=== PATIENT | male | born 1975 | race Caucasian/White ===

== ENCOUNTER 2016-12-20 10:51 | Emergency (ER) | payer OTHER, BC ==
--- NOTE | 2016-12-20 12:16 | ED ---
Head Injury HPI - General Chief complaint: Head Injury Stated complaint: HEAD LACERATION Time Seen by Provider: 12/20/16 12:02 Source: patient, RN notes reviewed, old records reviewed Mode of arrival: ambulatory Limitations: no limitations - History of Present Illness Initial comments: this is a 41-year-old male presents emergency Department chief complaint of a parietal scalp laceration. Patient reports that he was using a metal pole to drive a fence post in. Patient reports he came upward and hit his head. Denies any loss of consciousness. Denies any nausea or vomiting or vision changes. He states that he felt slightly dizzy for a few seconds afterwards. Patient states that he has been alert and oriented and fine at this time. Patient states that he has a laceration measuring approximately 4 cm over the right frontal/parietal scalp. patient presents that his tetanus shot is up-to- date. Denies any peripheral paresthesias. Patient denies any recent fever, chills, shortness of breath, chest pain, back pain, abdominal pain, nausea vomiting, numbness or tingling, dysuria or hematuria, constipation or diarrhea, headaches or visual changes, or any other current symptoms - Related Data Allergies/Adverse reactions: Allergies Allergy/AdvReac Type Severity Reaction Status Date / Time Penicillins Allergy Unknown Verified 12/20/16 11:56 Childhood Review of Systems ROS Statement: Those systems with pertinent positive or pertinent negative responses have been documented in the HPI. ROS Other: All systems not noted in ROS Statement are negative. Past Medical History Past Medical History: No Reported History History of Any Multi-Drug Resistant Organisms: None Reported Past Surgical History: No Surgical Hx Reported Additional Past Surgical History / Comment(s): lipomas removed Past Psychological History: No Psychological Hx Reported Smoking Status: Never smoker Past Alcohol Use History: Daily Past Drug Use History: None Reported General Exam - General Exam Comments Initial Comments: this is a 41-year-old male. No acute distress. Limitations: no limitations General appearance: alert, in no apparent distress Head exam: Present: atraumatic, normocephalic. Absent: normal inspection (4 cm laceration over the right frontal/parietal scalp. Lacerations are superficial. No significant hematoma noted.) Eye exam: Present: normal appearance, PERRL, EOMI. Absent: scleral icterus, conjunctival injection, periorbital swelling ENT exam: Present: normal exam, mucous membranes moist Neck exam: Present: normal inspection. Absent: tenderness, meningismus, lymphadenopathy Respiratory exam: Present: normal lung sounds bilaterally. Absent: respiratory distress, wheezes, rales, rhonchi, stridor Cardiovascular Exam: Present: regular rate, normal rhythm, normal heart sounds. Absent: systolic murmur, diastolic murmur, rubs, gallop, clicks GI/Abdominal exam: Present: soft, normal bowel sounds. Absent: distended, tenderness, guarding, rebound, rigid Extremities exam: Present: normal inspection Back exam: Present: normal inspection Neurological exam: Present: alert, oriented X3, CN II-XII intact Psychiatric exam: Present: normal affect, normal mood Skin exam: Present: warm, dry, intact, normal color. Absent: rash Course Vital Signs 12/20/16 11:53 Temperature 98.6 F Pulse Rate 75 Respiratory 18 Rate Blood Pressure 135/89 O2 Sat by Pulse 100 Oximetry Procedures - Laceration Laceration #1 Site: scalp (right parietal) Size (cm): 3 Description: linear Depth: simple, single layer Anesthetic Used: lidocaine 1% Anesthesia Technique: local infiltration Amount (mls): 3 Pre-repair: wound explored, irrigated extensively Type of Sutures: other (staple) Number of Sutures: 4 Patient Tolerated Procedure: well, no complications Medical Decision Making - Medical Decision Making 41-year-old male chief complaint of a scalp laceration while using a metal pole trimethaphan spurs. He reports he came up with a metal pole and hit his head. Patient denies any loss of consciousness. Denies any vision changes, nausea or any prolonged headache or symptoms. Patient reports he felt slightly dizzy for a few seconds after he hit himself. Patient states that he is up-to-date on tetanus shot. Patient's wound was thoroughly irrigated and closed with 4 demarco. Is continued to have the demarco removed. Patient underwent CT scan brain and Cspine. Discussed strict return parameters, if he has any severe vomiting or altered mental status he needs return to emergency department at once. Patient is with his significant other. She understands return parameters as well. Discussed the patient needs to be monitored for the next 24 -48 hours. Patient agrees to treatment plan will comply. Discussed monitoring for any signs of infection over the demarco. Return parameters were discussed. - Radiology Data Radiology results: report reviewed Normal computed tomography scan of the brain. CT of the C-spine is negative for any acute process. Disposition Clinical Impression: Scalp laceration, Head injury, closed, without LOC Disposition: HOME SELF-CARE Condition: Good Instructions: Concussion (ED), Staple Care (ED) Additional Instructions: Please return to the emergency room in 8-10 days to have demarco removed. Please leave wound covered for the first 24-48 hours and then leave open to air after that time. Please use clean soap and water to clean the staple area to prevent scabbing over the top of your sutures. Please watch for any signs of infection which may include but not limited to increased pain, swelling, redness , fever or chills. Please return to the emergency room if any signs of infection do occur. Please return to the emergency room for any other concerns or complications. Referrals: Ambrocio Morales MD [Primary Care Provider] - 1-2 days Time of Disposition: 12:14
--- NOTE | 2016-12-20 13:33 | CT ---
EXAMINATION TYPE: CT brain myah guadalupe DATE OF EXAM: 12/20/2016 COMPARISON: NONE HISTORY: Laceration to top of head after 25 lb fence fell on head CT DLP: 1790 mGycm Automated exposure control for dose reduction was used. TECHNIQUE: CT scan of the head and cervical spine are performed without contrast. FINDINGS: BRAIN: Central structures are midline. There is no evidence of hydrocephalus. No acute focal lesion, mass effect or midline shift is seen. I do not see evidence of intracranial blood. Visualized portions of the paranasal sinuses and mastoids are clear. No depressed skull fracture is s een. IMPRESSION: NORMAL CT SCAN OF THE BRAIN. CERVICAL SPINE: Visualized portions of the lungs are clear. There is some shotty cervical adenopathy. Prevertebral soft tissues are otherwise normal. Vertebral body height and alignment are maintained. Atlantoaxial relationships are normal. There is n o significant degenerative change. There are no protrusions identified. No fractures are identified. IMPRESSION: NO ACUTE OSSEOUS LESION.
[2016-12-20 13:42] VITALS: BP 131/66; PULSE 80; RESP 20; TEMP 98.2
== END 2016-12-20 13:42 | disposition home or self-care (01) ==
LOC: EC 10:51
DX: S01.01XA Laceration without foreign body of scalp, initial encounter (principal); Z88.0 Allergy status to penicillin; W22.8XXA Striking against or struck by other objects, initial encounter; Y93.89 Activity, other specified
CPT/HCPCS: 12002; 70450; 72125; 99284

== ENCOUNTER 2018-10-13 21:24 | Emergency (ER) | payer BC, OTHER ==
[2018-10-13 21:31] VITALS: TEMP 98.1
[2018-10-13] MEDS ORDERED: SODIUM CHLORIDE 0.9% 500 ML 500 ML IV STA (21:45)
[2018-10-13 22:21] LABS: Basophils % (A) 1 %; Eosinophils # (A) 0.1 k/uL (0-0.7); Eosinophils % (A) 1 %; HCT 42.6 % (39.0-53.0); HGB 14.2 gm/dL (13.0-17.5); Lymphocytes # (A) 2.3 k/uL (1.0-4.8); Lymphocytes % (A) 29 %; MCH 29.8 pg (25.0-35.0); MCHC 33.2 g/dL (31.0-37.0); MCV 89.7 fL (80.0-100.0); Mean Platelet Volume 7.2; Monocytes # (A) 0.4 k/uL (0-1.0); Monocytes % (A) 5 %; Neutrophils # (A) 5.1 k/uL (1.3-7.7); Neutrophils % (A) 63 %; Platelet Count 205 k/uL (150-450); RBC 4.75 m/uL (4.30-5.90); RDW 14.5 % (11.5-15.5)
[2018-10-13 22:29] LABS: ALT 42 U/L (21-72); AST 32 U/L (17-59); African American GFR (CKD) >90 (>60 ml/min/1.73 sqM); Albumin 4.4 g/dL (3.5-5.0); Alkaline Phosphatase 85 U/L (38-126); Amylase 40 U/L (30-110); Anion Gap 10 mmol/L; Blood Urea Nitrogen 18 mg/dL (9-20); Calcium 8.9 mg/dL (8.4-10.2); Carbon Dioxide 26 mmol/L (22-30); Chloride 104 mmol/L (98-107); Glucose 106 mg/dL (74-99); Magnesium 2.1 mg/dL (1.6-2.3); Potassium 3.7 mmol/L (3.5-5.1); Sodium 140 mmol/L (137-145); Total Bilirubin 0.5 mg/dL (0.2-1.3); Total Protein 7.1 g/dL (6.3-8.2)
[2018-10-13 22:34] LABS: D-Dimer 0.56 mg/L FEU (<0.60); Partial Thromboplastin Time 23.6 sec (22.0-30.0); Prothrombin Time 10.5 sec (9.0-12.0)
--- NOTE | 2018-10-13 22:51 | XR ---
EXAM: XR Chest, 2 Views CLINICAL HISTORY: Chest Pain TECHNIQUE: Frontal and lateral views of the chest. COMPARISON: 06/19/2018 FINDINGS: Lungs: Unremarkable. No consolidation. Pleural space: Unremarkable. No pneumothorax. Heart: Unremarkable. No cardiomegaly. Mediastinum: Unremarkable. Bones/joints: No acute osseous abnormality. IMPRESSION: No acute cardiopulmonary process.
[2018-10-13] MEDS ORDERED: ONDANSETRON 4 MG/2 ML VIAL IVP STA (22:53)
[2018-10-13] MEDS ORDERED: SODIUM CHLORIDE 0.9% 1,000 ML IV ONE (22:53)
[2018-10-13] MEDS ORDERED: MORPHINE SULFATE 4 MG/ML SYRINGE IVP STA (22:53)
[2018-10-14] MEDS ORDERED: HYDROmorphone 1 MG/ML 1 ML SYRINGE IVP STA (01:44)
--- NOTE | 2018-10-14 01:55 | US ---
EXAM: US Abdomen Limited, Right Upper Quadrant CLINICAL HISTORY: Pain TECHNIQUE: Real-time ultrasound of the right upper quadrant with image documentation. COMPARISON: No relevant prior studies available. FINDINGS: Liver: Liver is normal in size and smooth in contour. Diffusely increased hepatic echogenicity is suggestive of steatosis. No focal hepatic lesions. Gallbladder: Unremarkable. No gallstones. Common bile duct: Unremarkable as visualized. No stones. No dilation. Pancreas: Unremarkable as visualized. Right kidney: Unremarkable. No stones. No solid mass. No hydronephrosis. IMPRESSION: No acute findings. Probable hepatic steatosis.
--- NOTE | 2018-10-14 02:03 | ED ---
General Adult HPI - General Source: patient Mode of arrival: ambulatory Limitations: no limitations <Whitney Cardoza - Last Filed: 10/14/18 02:14> <Sadie Horvath - Last Filed: 10/14/18 13:16> - General Chief complaint: Chest Pain Stated complaint: Chest pain Time Seen by Provider: 10/13/18 21:36 - History of Present Illness Initial comments: 43-year-old male patient presents to the emergency department today for evaluation of chest discomfort radiating into his neck. Patient states symptoms started approximately 45 minutes prior to arrival. Patient states he may be having some shortness of breath with this. Denies any cough or congestion. Patient denies taking any medication for his symptoms. He reports that he did have surgery to remove pins out of his right foot yesterday. States he was in tubated. He denies any fever or chills with this. Denies any abdominal pain, nausea, or vomiting. Patient denies any history of smoking. Does report that he drinks alcohol every other day. Denies any constipation or diarrhea. Denies any history of similar symptoms. Does report that he has a dysfunctional gallbladder and has been having "attacks" for the last 10 years. Patient denies any recent rash, diarrhea, constipation, back pain, numbness, tingling, dizziness, weakness, hematuria, dysuria, urinary urgency, urinary frequency, headache, visual changes, or any other complaints. (Whitney Cardoza) - Related Data Home Medications Medication Instructions Recorded Confirmed Aspirin EC [Ecotrin] 325 mg PO DAILY 06/19/18 10/13/18 Allergies Allergy/AdvReac Type Severity Reaction Status Date / Time Penicillins Allergy Unknown Verified 10/13/18 22:10 Childhood Review of Systems ROS Other: All systems not noted in ROS Statement are negative. <Whitney Cardoza - Last Filed: 10/14/18 02:14> ROS Other: All systems not noted in ROS Statement are negative. <Sadie Horvath - Last Filed: 10/14/18 13:16> ROS Statement: Those systems with pertinent positive or pertinent negative responses have been documented in the HPI. Past Medical History Past Medical History: Deep Vein Thrombosis (DVT) History of Any Multi-Drug Resistant Organisms: None Reported Past Surgical History: Orthopedic Surgery Additional Past Surgical History / Comment(s): lipomas removed Past Psychological History: No Psychological Hx Reported Smoking Status: Never smoker Past Alcohol Use History: Daily Past Drug Use History: None Reported <Whitney Cardoza Manny - Last Filed: 10/14/18 02:14> General Exam Limitations: no limitations General appearance: alert, in no apparent distress, other (Physical well- developed, well-nourished adult male patient in no acute distress. Vital signs upon presentation are temperature 98.1F, pulse 89, respirations 18, blood pressure 148/96, pulse ox 98% on room air.) Eye exam: Present: normal appearance, PERRL, EOMI. Absent: scleral icterus, conjunctival injection, periorbital swelling ENT exam: Present: normal exam, normal oropharynx, mucous membranes moist Respiratory exam: Present: normal lung sounds bilaterally. Absent: respiratory distress, wheezes, rales, rhonchi, stridor Cardiovascular Exam: Present: regular rate, normal rhythm, normal heart sounds. Absent: systolic murmur, diastolic murmur, rubs, gallop, clicks GI/Abdominal exam: Present: soft, normal bowel sounds. Absent: distended, tenderness, guarding, rebound, rigid Neurological exam: Present: alert, oriented X3, CN II-XII intact Psychiatric exam: Present: normal affect, normal mood Skin exam: Present: warm, dry, intact, normal color. Absent: rash <Whitney Cardoza Manny - Last Filed: 10/14/18 02:14> Course Vital Signs 10/13/18 10/14/18 21:28 02:12 Temperature 98.1 F Pulse Rate 89 78 Respiratory 18 16 Rate Blood Pressure 148/96 117/62 O2 Sat by Pulse 98 100 Oximetry EKG Findings - EKG Comments: EKG Findings:: EKG obtained at 2136 shows normal sinus rhythm with a ventricular rate of 76, MI interval 186, QRS duration 96, QT 378, QTC 425. No evidence of ST elevation or depression. <Whitney Cardoza - Last Filed: 10/14/18 02:14> Medical Decision Making - Lab Data Result diagrams: 10/13/18 22:11 10/13/18 22:11 - Radiology Data Radiology results: report reviewed, image reviewed <Whitney Cardoza - Last Filed: 10/14/18 02:14> - Lab Data Result diagrams: 10/13/18 22:11 10/13/18 22:11 <Sadie Horvath - Last Filed: 10/14/18 13:16> - Medical Decision Making 43-year-old male patient presented to the emergency department today for evaluation of chest pain with radiation into the throat. Physical examination was unremarkable. Abdomen soft and nontender. Lungs are clear to auscultation with good air movement. Patient did have surgical procedure yesterday. Does have history of DVT. Labs reviewed, Troponin negative. Lipase did show elevation of 484. D-dimer was negative. Chest x-ray showed no acute cardiopulmonary process. I did discuss findings and results with the patient. Given history of gallbladder dysfunction elevated lipase at did perform abdominal ultrasound which showed no acute abnormalities of the gallbladder. We did discuss pancreatic irritation as a cause for his symptoms. We also discussed irritation from being intubated during his procedure yesterday as a possible cause. He is instructed to increase fluids. He is instructed to follow-up with his primary care physician for recheck in 1-2 days. He is urged to discuss cardiology referral. Return parameters were discussed in detail. He verbalizes understanding and agrees with this plan. (Whitney Cardoza) I was available for consultation in the emergency department. The history and physical exam were done by the midlevel provider. I was consulted for this patient's care. I reviewed the case with the midlevel provider and based on their presentation of the patient, I agree with the assessment, medical decision making and plan of care as documented. Chart was dictated using [employer] dictation software. Attempts were made to correct any dictation errors however some typographical errors may persist. (Sadie Horvath) - Lab Data Lab Results 10/13/18 10/13/18 10/13/18 Range/Units 22:11 22:11 22:11 WBC 8.0 (3.8-10.6) k/uL RBC 4.75 (4.30-5.90) m/uL Hgb 14.2 (13.0-17.5) gm/dL Hct 42.6 (39.0-53.0) % MCV 89.7 (80.0-100.0) fL MCH 29.8 (25.0-35.0) pg MCHC 33.2 (31.0-37.0) g/dL RDW 14.5 (11.5-15.5) % Plt Count 205 (150-450) k/uL Neutrophils % 63 % Lymphocytes % 29 % Monocytes % 5 % Eosinophils % 1 % Basophils % 1 % Neutrophils # 5.1 (1.3-7.7) k/uL Lymphocytes # 2.3 (1.0-4.8) k/uL Monocytes # 0.4 (0-1.0) k/uL Eosinophils # 0.1 (0-0.7) k/uL Basophils # 0.0 (0-0.2) k/uL PT 10.5 (9.0-12.0) sec INR 1.0 (<1.2) APTT 23.6 (22.0-30.0) sec D-Dimer 0.56 (<0.60) mg/L FEU Sodium 140 (137-145) mmol/L Potassium 3.7 (3.5-5.1) mmol/L Chloride 104 (98-107) mmol/L Carbon Dioxide 26 (22-30) mmol/L Anion Gap 10 mmol/L BUN 18 (9-20) mg/dL Creatinine 1.04 (0.66-1.25) mg/dL Est GFR (CKD-EPI)AfAm >90 (>60 ml/min/1.73 sqM) Est GFR (CKD-EPI)NonAf 88 (>60 ml/min/1.73 sqM) Glucose 106 H (74-99) mg/dL Calcium 8.9 (8.4-10.2) mg/dL Magnesium 2.1 (1.6-2.3) mg/dL Total Bilirubin 0.5 (0.2-1.3) mg/dL AST 32 (17-59) U/L ALT 42 (21-72) U/L Alkaline Phosphatase 85 (38-126) U/L Troponin I (0.000-0.034) ng/mL Total Protein 7.1 (6.3-8.2) g/dL Albumin 4.4 (3.5-5.0) g/dL Amylase 40 (30-110) U/L Lipase 484 H (23-300) U/L 10/13/18 Range/Units 22:11 WBC (3.8-10.6) k/uL RBC (4.30-5.90) m/uL Hgb (13.0-17.5) gm/dL Hct (39.0-53.0) % MCV (80.0-100.0) fL MCH (25.0-35.0) pg MCHC (31.0-37.0) g/dL RDW (11.5-15.5) % Plt Count (150-450) k/uL Neutrophils % % Lymphocytes % % Monocytes % % Eosinophils % % Basophils % % Neutrophils # (1.3-7.7) k/uL Lymphocytes # (1.0-4.8) k/uL Monocytes # (0-1.0) k/uL Eosinophils # (0-0.7) k/uL Basophils # (0-0.2) k/uL PT (9.0-12.0) sec INR (<1.2) APTT (22.0-30.0) sec D-Dimer (<0.60) mg/L FEU Sodium (137-145) mmol/L Potassium (3.5-5.1) mmol/L Chloride (98-107) mmol/L Carbon Dioxide (22-30) mmol/L Anion Gap mmol/L BUN (9-20) mg/dL Creatinine (0.66-1.25) mg/dL Est GFR (CKD-EPI)AfAm (>60 ml/min/1.73 sqM) Est GFR (CKD-EPI)NonAf (>60 ml/min/1.73 sqM) Glucose (74-99) mg/dL Calcium (8.4-10.2) mg/dL Magnesium (1.6-2.3) mg/dL Total Bilirubin (0.2-1.3) mg/dL AST (17-59) U/L ALT (21-72) U/L Alkaline Phosphatase (38-126) U/L Troponin I <0.012 (0.000-0.034) ng/mL Total Protein (6.3-8.2) g/dL Albumin (3.5-5.0) g/dL Amylase (30-110) U/L Lipase (23-300) U/L - Radiology Data Two-view x-ray of the chest is obtained. Report reviewed in its entirety. Im pression by Dr. Furubayashi shows no acute cardiopulmonary process. Ultrasound of the right upper quadrant abdomen was obtained. Report was reviewed in its entirety. Impression by Dr. Fischer shows no acute findings. Probable hepatic steatosis. (Whitney Cardoza) Disposition Is patient prescribed a controlled substance at d/c from ED?: No Time of Disposition: 02:02 <Whitney Cardoza - Last Filed: 10/14/18 02:14> <Sadie Horvath - Last Filed: 10/14/18 13:16> Clinical Impression: Chest pain Disposition: HOME SELF-CARE Condition: Good Instructions (If sedation given, give patient instructions): Chest Pain (ED), Pancreatitis (ED) Additional Instructions: Increase fluids. Start with clear liquid diet and advance as tolerated. Avoid fatty or greasy foods. Follow-up through primary care physician for recheck in 1-2 days. Discuss referral to cardiology. Return to the emergency department immediately for any new, worsening, or concerning symptoms. Referrals: Ambrocio Morales MD [Primary Care Provider] - 1-2 days
[2018-10-14 02:13] VITALS: BP 117/62; PULSE 78; RESP 16
== END 2018-10-14 02:12 | disposition home or self-care (01) ==
LOC: EC 21:24
DX: R07.89 Other chest pain (principal); Z86.718 Personal history of other venous thrombosis and embolism; Z79.82 Long term (current) use of aspirin; Z88.0 Allergy status to penicillin
CPT/HCPCS: 36415; 93005; 85379; 80053; 82150; 83690; 83735; 84484; 85025; 85610; 85730; 71046; 99285; 96374; 96375; 96361; J2270; J2405; 76705

== ENCOUNTER 2020-08-05 21:09 | Observation (INO) | payer BC, OTHER ==
[~2020-08-05 21:09] MED LIST: IV FLUID CONTINUATION 1,000 ML IV ONE
[2020-08-05] MEDS ORDERED: ASPIRIN 81 MG PO STA (21:32)
[2020-08-05] MEDS ORDERED: NITROGLYCERIN SL TABS 0.4 MG TAB SUBLINGUAL STA (21:32)
--- NOTE | 2020-08-05 21:32 | ED ---
Chest Pain HPI - General Chief Complaint: Chest Pain Stated Complaint: Chest pain Time Seen by Provider: 08/05/20 21:15 Source: patient Mode of arrival: wheelchair Limitations: no limitations - History of Present Illness MD Complaint: chest pain Onset/Timin -: minutes(s) Onset: during exertion (Patient was raking) Pain Location: substernal, right chest Pain Radiation: none Severity: moderate Quality: sharp Consistency: intermittent Improves With: other (Pressing on his chest) Worsens With: nothing Treatments Prior to Arrival: none - Related Data Home Medications Medication Instructions Recorded Confirmed Aspirin EC [Ecotrin] 325 mg PO DAILY 06/19/18 08/05/20 EPINEPHrine (Auto Inject) [Epipen] 0.3 mg IM ONCE PRN 08/05/20 08/05/20 Fluticasone Nasal Wilbur [Flonase 2 spr EA NOSTRIL DAILY PRN 08/05/20 08/05/20 Nasal Wilbur] Ibuprofen [Motrin] 800 mg PO BID PRN 08/05/20 08/05/20 Meloxicam 15 mg PO DAILY 08/05/20 08/05/20 Pantoprazole Sodium [Protonix] 40 mg PO DAILY 08/05/20 08/05/20 Allergies Allergy/AdvReac Type Severity Reaction Status Date / Time Penicillins Allergy Unknown Verified 08/05/20 21:53 Childhood Review of Systems ROS Statement: Those systems with pertinent positive or pertinent negative responses have been documented in the HPI. ROS Other: All systems not noted in ROS Statement are negative. Constitutional: Denies: fever, chills Respiratory: Denies: cough, dyspnea Cardiovascular: Reports: chest pain. Denies: palpitations, dyspnea on exertion, edema, syncope Gastrointestinal: Denies: abdominal pain, nausea, vomiting Genitourinary: Denies: dysuria, hematuria Musculoskeletal: Denies: back pain Skin: Denies: rash Neurological: Denies: headache, weakness, numbness EKG Findings - EKG Results: EKG: interpreted by BREE, sinus rhythm (Rate 100 bpm), normal axis, normal QRS, no acute changes - Blocks, [place], Hypertrophy, ST Abn: Repolarization changes or abnormalities: nonspecific abnormality, ST segment, and/or T wave Past Medical History Past Medical History: Deep Vein Thrombosis (DVT) History of Any Multi-Drug Resistant Organisms: None Reported Past Surgical History: Orthopedic Surgery Additional Past Surgical History / Comment(s): lipomas removed Past Psychological History: No Psychological Hx Reported Smoking Status: Never smoker Past Alcohol Use History: Daily Past Drug Use History: None Reported - Past Family History Mother Family Medical History: Cancer Father Family Medical History: Cancer General Exam Limitations: no limitations General appearance: alert, in no apparent distress Head exam: Present: atraumatic, normocephalic Eye exam: Present: normal appearance. Absent: scleral icterus, conjunctival injection Neck exam: Present: normal inspection Respiratory exam: Present: normal lung sounds bilaterally. Absent: respiratory distress, wheezes, rales, rhonchi, stridor, chest wall tenderness, accessory muscle use, decreased breath sounds, prolonged expiratory Cardiovascular Exam: Present: regular rate, normal rhythm, normal heart sounds. Absent: systolic murmur, diastolic murmur, rubs, gallop GI/Abdominal exam: Present: soft. Absent: distended, tenderness, guarding, rebound, rigid, mass Extremities exam: Present: normal inspection, normal capillary refill. Absent: pedal edema, calf tenderness Back exam: Present: normal inspection. Absent: CVA tenderness (R), CVA tenderness (L) Neurological exam: Present: alert Skin exam: Present: warm, dry, intact, normal color. Absent: rash Course Vital Signs 08/05/20 08/05/20 08/05/20 21:11 21:28 21:54 Temperature 98.0 F Pulse Rate 100 96 Pulse Rate [ 96 Testing Director ] Respiratory 18 18 Rate Blood Pressure 146/85 129/100 O2 Sat by Pulse 98 98 Oximetry 08/05/20 08/05/20 08/05/20 22:29 22:57 23:00 Temperature Pulse Rate 92 97 90 Pulse Rate [ Testing Director ] Respiratory 18 18 18 Rate Blood Pressure 133/102 145/100 138/102 O2 Sat by Pulse 96 98 97 Oximetry 08/05/20 08/05/20 08/06/20 23:20 23:40 00:20 Temperature 98.5 F Pulse Rate 81 78 Pulse Rate [ Testing Director ] Respiratory 18 18 Rate Blood Pressure 121/94 122/83 O2 Sat by Pulse 97 97 Oximetry - Reevaluation(s) Reevaluation #1: 08/05/20 23:04 I was informed that the patient had slightly elevated troponin. Patient reevaluated. ECG repeated which does not show STEMI. Case discussed with Dr. Juarez, covering cardiology and his recommendations are incorporated. Patient reevaluated following some medications and he states that the pain has gone however he does still have a mild tightness in the chest. Additional medications ordered. Reevaluation #2: 08/05/20 23:21 Patient has continued to have chest pains despite increased medical management, case has been discussed with Dr. Juarez who has activated the Stud Driver and will take patient for heart cath. Critical Care Time Critical Care Time: Yes (40 minutes) Disposition Clinical Impression: Acute coronary syndrome, Elevated troponin I level Disposition: ADMITTED IP TO THIS HOSP Condition: Critical
[2020-08-05 21:42] LABS: Basophils % (A) 1 %; Eosinophils # (A) 0.2 k/uL (0-0.7); Eosinophils % (A) 3 %; HCT 38.8 % (39.0-53.0); HGB 13.6 gm/dL (13.0-17.5); Lymphocytes # (A) 2.2 k/uL (1.0-4.8); Lymphocytes % (A) 36 %; MCH 31.1 pg (25.0-35.0); MCHC 34.9 g/dL (31.0-37.0); Mean Platelet Volume 7.3; Monocytes # (A) 0.4 k/uL (0-1.0); Monocytes % (A) 6 %; Neutrophils # (A) 3.1 k/uL (1.3-7.7); Neutrophils % (A) 51 %; Platelet Count 185 k/uL (150-450); RBC 4.36 m/uL (4.30-5.90); WBC 6.1 k/uL (3.8-10.6)
--- NOTE | 2020-08-05 21:51 | XR ---
EXAMINATION TYPE: XR chest 2V DATE OF EXAM: 08/05/2020 COMPARISON: Chest x-ray 10/13/2018 HISTORY: Chest pain TECHNIQUE: Frontal and lateral views of the chest are obtained. FINDINGS: There is no focal air space opacity, pleural effusion, or pneumothorax seen. The cardiac silhouette size is within normal limits. The osseous structures are intact. There are overlying mahad ds. IMPRESSION: No acute cardiopulmonary process.
[2020-08-05 21:54] LABS: ALT 26 U/L (4-49); AST 39 U/L (17-59); African American GFR (CKD) >90 (>60 ml/min/1.73 sqM); Alkaline Phosphatase 69 U/L (38-126); Amylase 42 U/L (30-110); Anion Gap 7 mmol/L; Blood Urea Nitrogen 18 mg/dL (9-20); Calcium 8.8 mg/dL (8.4-10.2); Carbon Dioxide 23 mmol/L (22-30); Chloride 110 mmol/L (98-107); Glucose 95 mg/dL (74-99); Lipase 50 U/L (23-300); Magnesium 1.9 mg/dL (1.6-2.3); Non-African American GFR(CKD) >90 (>60 ml/min/1.73 sqM); Potassium 3.3 mmol/L (3.5-5.1); Sodium 140 mmol/L (137-145); Total Bilirubin 0.6 mg/dL (0.2-1.3); Total Protein 6.5 g/dL (6.3-8.2)
[2020-08-05] MEDS ORDERED: MORPHINE SULFATE 4 MG/ML SYRINGE IV STA (21:56)
[2020-08-05 22:18] LABS: INR 0.9 (<1.2); Partial Thromboplastin Time 23.3 sec (22.0-30.0); Prothrombin Time 9.9 sec (9.0-12.0)
[2020-08-05] MEDS ORDERED: HEPARIN SODIUM 1,000 UN/ML (10ML VL) IV PRN (22:35)
[2020-08-05] MEDS ORDERED: fentaNYL (PF) 50 MCG/ML 2 ML AMP IVP STA ×2 (22:37→22:56)
[2020-08-05] MEDS ORDERED: METOPROLOL TARTRATE 5 MG/5 ML VIAL IVP SCH (22:45)
[2020-08-05] MEDS ORDERED: HEPARIN SOD,PORK IN 0.45% NACL 25,000 UNIT in 0.45% NACL 1 250ML.BAG IV SCH (22:45)
[2020-08-05] MEDS ORDERED: METOPROLOL TARTRATE 5 MG/5 ML VIAL IVP PRN (22:46)
[2020-08-05] MEDS ORDERED: METOPROLOL TARTRATE 5 MG/5 ML VIAL IVP STA ×2 (22:46→23:03)
[2020-08-05] MEDS ORDERED: NITROGLYCERIN-D5W PMX 50 MG in DEXTROSE/WATER 1 250ML.BAG IV ONE (22:46)
[2020-08-05] MEDS ORDERED: LIDOCAINE 1% INJ 10MG/ML (20 ML MDV) ONE (23:52)
[2020-08-06] MEDS ORDERED: VERAPAMIL 2.5 MG/ML 2 ML AMP ONE (00:11)
[2020-08-06] MEDS ORDERED: LIDOCAINE 1% INJ 10MG/ML (20 ML MDV) SQ ONE ×2 (00:17)
[2020-08-06] MEDS ORDERED: VERAPAMIL SYRINGE (5 MG/10 ML) INTRAARTER ONE (00:20)
[2020-08-06] MEDS ORDERED: MIDAZOLAM 2 MG/2 ML VIAL IV ONE (00:22)
[2020-08-06] MEDS ORDERED: HYDROmorphone 1 MG/ML 1 ML SYRINGE ONE (00:26)
[2020-08-06] MEDS ORDERED: HYDROmorphone 1 MG/ML 1 ML SYRINGE IVP ONE (00:29)
[2020-08-06] MEDS ORDERED: RX INFO: IV CONTRAST WAS GIVEN 1 EACH MISC MISCELLANE PRN (00:40)
[2020-08-06] MEDS ORDERED: POTASSIUM CHLORIDE ER 20 MEQ TAB.ER PO STA (00:43)
[2020-08-06] MEDS ORDERED: SODIUM CHLORIDE 0.9% 1,000 ML IV SCH (00:45)
[2020-08-06] MEDS ORDERED: IV FLUID CONTINUATION 1,000 ML IV ONE (00:45)
--- NOTE | 2020-08-06 00:49 | P.CRDCN ---
History of Present Illness Consult date: 08/06/20 Chief complaint: Chest pain History of present illness: This is a 45-year-old gentleman with a past medical history significant for hypertension presented to the emergency department complaining of chest discomfort. The chest discomfort started earlier. The patient discomfort as a pressure/dull discomfort in the middle of the chest with radiation to the neck. It was not associated with any shortness of breath or dizziness or lightheadedne ss or sweating or nausea or vomiting or change in mental status. The patient continues to have ongoing chest discomfort in the ER did not improve in spite of IV nitroglycerin. The EKG showed sinus rhythm without any significant ST or T- wave abnormalities. The troponin came in to be abnormal. Because of the ongoing chest discomfort and because of the abnormal troponin a heart catheterization was advised. He underwent a heart catheterization which revealed normal coronaries. Upon injecting the right coronary artery the patient went into V. fib because of injection through the conus branch of the RCA. He was cardioverted. Since then he has been maintaining normal rhythm and is stable from a cardiovascular standpoint of view. The heparin will be stopped. He will be started on aspirin as well as Toprol-XL. Please note that his potassium was borderline low at 3.2. Magnesium is within normal limits. Will replace her potassium and continue monitor the potassium for the next 24 hours. Also we are going to obtain an echocardiogram was Doppler. Past Medical History Past Medical History: Deep Vein Thrombosis (DVT) History of Any Multi-Drug Resistant Organisms: None Reported Past Surgical History: Orthopedic Surgery Additional Past Surgical History / Comment(s): lipomas removed Past Psychological History: No Psychological Hx Reported Smoking Status: Never smoker Past Alcohol Use History: Daily Past Drug Use History: None Reported Medications and Allergies Home Medications Medication Instructions Recorded Confirmed Type Aspirin EC [Ecotrin] 325 mg PO DAILY 06/19/18 08/05/20 History EPINEPHrine (Auto Inject) [Epipen] 0.3 mg IM ONCE PRN 08/05/20 08/05/20 History Fluticasone Nasal [place] [Flonase 2 spr EA NOSTRIL DAILY PRN 08/05/20 08/05/20 History Nasal [place]] Ibuprofen [Motrin] 800 mg PO BID PRN 08/05/20 08/05/20 History Meloxicam 15 mg PO DAILY 08/05/20 08/05/20 History Pantoprazole Sodium [Protonix] 40 mg PO DAILY 08/05/20 08/05/20 History Allergies Allergy/AdvReac Type Severity Reaction Status Date / Time Penicillins Allergy Unknown Verified 08/05/20 21:53 Childhood Physical Exam Vitals: Vital Signs Temp Pulse Pulse Resp BP Pulse Ox 08/05/20 23:40 78 18 122/83 97 08/05/20 23:20 81 18 121/94 97 08/05/20 23:00 90 18 138/102 97 08/05/20 22:57 97 18 145/100 98 08/05/20 22:29 92 18 133/102 96 08/05/20 21:54 96 18 129/100 98 08/05/20 21:28 96 08/05/20 21:11 98.0 F 100 18 146/85 98 Intake and Output 08/05/20 08/05/20 08/06/20 14:59 22:59 06:59 Other: Weight 74.843 kg - Constitutional General appearance: no acute distress - Respiratory Respiratory: bilateral: CTA - Cardiovascular Rhythm: regular Heart sounds: normal: S1, S2 Abnormal Heart Sounds: systolic murmur Results 08/05/20 21:34 08/05/20 21:34 Cardiac Enzymes 08/05/20 08/05/20 Range/Units 21:34 21:34 AST 39 (17-59) U/L Troponin I 0.286 H* (0.000-0.034) ng/mL Coagulation 08/05/20 Range/Units 21:34 PT 9.9 (9.0-12.0) sec APTT 23.3 (22.0-30.0) sec CBC 08/05/20 Range/Units 21:34 WBC 6.1 (3.8-10.6) k/uL RBC 4.36 (4.30-5.90) m/uL Hgb 13.6 (13.0-17.5) gm/dL Hct 38.8 L (39.0-53.0) % Plt Count 185 (150-450) k/uL Comprehensive Metabolic Panel 08/05/20 Range/Units 21:34 Sodium 140 (137-145) mmol/L Potassium 3.3 L (3.5-5.1) mmol/L Chloride 110 H (98-107) mmol/L Carbon Dioxide 23 (22-30) mmol/L BUN 18 (9-20) mg/dL Creatinine 0.95 (0.66-1.25) mg/dL Glucose 95 (74-99) mg/dL Calcium 8.8 (8.4-10.2) mg/dL AST 39 (17-59) U/L ALT 26 (4-49) U/L Alkaline Phosphatase 69 (38-126) U/L Total Protein 6.5 (6.3-8.2) g/dL Albumin 4.0 (3.5-5.0) g/dL Current Medications Generic Name Dose Route Start Last Admin Trade Name Freq PRN Reason Stop Dose Admin Aspirin 81 mg 08/06/20 09:00 Aspirin 81 Mg PO DAILY AB Nitroglycerin/Dextrose 50 mg/ 250 mls @ 6 mls/hr 08/05/20 22:46 08/05/20 22:49 IV Solution IV 08/06/20 22:45 20 mcg/min .Q24H ONE 6 mls/hr Administration Protocol 20 MCG/MIN Sodium Chloride 1,000 mls @ 75 mls/hr 08/06/20 00:45 Saline 0.9% IV 08/06/20 05:46 .[id number] AB Metoprolol Succinate 25 mg 08/06/20 09:00 Metoprolol Succinate (Er) 25 Mg Tab.Er.24h PO DAILY [facility] Miscellaneous Information 1 each 08/06/20 00:40 Rx Info: Iv Contrast Was Given 1 Each Misc MISCELLANE 08/08/20 00:41 DAILY PRN Per Protocol Intake and Output 08/05/20 08/05/20 08/06/20 14:59 22:59 06:59 Other: Weight 74.843 kg Patient Weight 08/06/20 06:59 Weight 74.843 kg 08/05/20 21:34 08/05/20 21:34 Assessment and Plan Assessment: Assessment #1 chest discomfort #2 mildly abnormal troponin #3 iatrogenic ventricular fibrillation #4 electrolytes imbalance with hypokalemia Plan #1 aspirin #2 Toprol-XL #3 replace the potassium #4 obtain an echo was Doppler #5 follow-up with the patient
[2020-08-06] MEDS ORDERED: IOPAMIDOL-370 100ML BTL INJ ONE (00:52)
[2020-08-06 01:04] LABS: Glucose,Whole Blood 109 mg/dL (75-99)
[2020-08-06 04:41] LABS: Basophils % (A) 0 %; Eosinophils # (A) 0.1 k/uL (0-0.7); Eosinophils % (A) 1 %; HCT 36.4 % (39.0-53.0); HGB 12.8 gm/dL (13.0-17.5); Lymphocytes # (A) 1.3 k/uL (1.0-4.8); Lymphocytes % (A) 21 %; MCH 31.8 pg (25.0-35.0); MCHC 35.2 g/dL (31.0-37.0); MCV 90.2 fL (80.0-100.0); Mean Platelet Volume 7.3; Monocytes # (A) 0.4 k/uL (0-1.0); Monocytes % (A) 7 %; Neutrophils # (A) 4.4 k/uL (1.3-7.7); Neutrophils % (A) 70 %; Platelet Count 180 k/uL (150-450); RBC 4.04 m/uL (4.30-5.90); RDW 12.2 % (11.5-15.5); WBC 6.3 k/uL (3.8-10.6)
[2020-08-06 04:57] LABS: African American GFR (CKD) >90 (>60 ml/min/1.73 sqM); Anion Gap 5 mmol/L; Blood Urea Nitrogen 13 mg/dL (9-20); Calcium 8.3 mg/dL (8.4-10.2); Carbon Dioxide 25 mmol/L (22-30); Chloride 110 mmol/L (98-107); Glucose 108 mg/dL (74-99); Non-African American GFR(CKD) >90 (>60 ml/min/1.73 sqM); Potassium 3.9 mmol/L (3.5-5.1); Sodium 140 mmol/L (137-145)
--- NOTE | 2020-08-06 06:26 | CC ---
CARDIAC CATHETERIZATION REPORT DATE OF SERVICE: 08/06/2020 PERFORMING PHYSICIAN: Gigi Juarez MD. PROCEDURE PERFORMED: Selective right and left coronary angiogram. INDICATION: This is a 45-year-old gentleman with hypertension who presented to the emergency department complaining of chest discomfort and ruled in for acute [id number] myocardial infarction. Because he continues to have ongoing chest discomfort about 8/10 in intensity, in spite of nitroglycerin drip, heart catheterization was advised. APPROACH: Right radial artery. COMPLICATION: Iatrogenic ventricular fibrillation because of injection at the conus branch. LEVEL OF SEDATION: Moderate with sedation length of 15 minutes. PROCEDURE DESCRIPTION: After obtaining an informed consent, the patient was brought to the cardiac tanbark laborer. The right radial artery was cannulated using micropuncture technique and a micropuncture wire passed easily. Then I placed a 6-Bolivian sheath there. I did selective right and left coronary angiogram with JR4 and JL3.5 catheters. Left heart catheterization was not performed. Please note that the patient was given 2 mg of verapamil IA. SELECTIVE CORONARY ANGIOGRAM: 1. The RCA is a large caliber vessel and is a dominant vessel. The RCA is angiographically normal. It distally bifurcates into PDA and PLV branches and both appeared to be angiographically normal. 2. The left main is angiographically normal. It bifurcates into LCX and LAD. 3. The LCX is a large caliber vessel, it is a nondominant vessel. The LCX is angiographically normal. It gives rise into a large OM branch which appeared to be angiographically normal. 4. The LAD: The proximal LAD appeared to be normal. The mid LAD and distal LAD are normal as well. The LAD gives rise into small diagonal branches, both appeared to be angiographically normal. CONCLUSION: Normal coronary angiogram. POSTPROCEDURE MANAGEMENT: Medical treatment. MMODL / IJN: [id number] /
[2020-08-06] MEDS ORDERED: METOPROLOL SUCCINATE (ER) 25 MG TAB.ER.24H PO SCH (09:00)
[2020-08-06] MEDS ORDERED: ASPIRIN 81 MG PO SCH (09:00)
[2020-08-06] MEDS ORDERED: ALPRAZolam 0.25 MG TAB PO PRN (09:55)
--- NOTE | 2020-08-06 11:53 | ECHOF ---
Referral Reason:LV function MEASUREMENTS -------- HEIGHT: 175.3 cm WEIGHT: 77.6 kg BP: 122/77 RVIDd: 2.8 cm (< 3.3) IVSd: 1.2 cm (0.6 - 1.1) LVIDd: 4.4 cm (3.9 - 5.3) LVPWd: 1.1 cm (0.6 - 1.1) IVSs: 1.5 cm LVIDs: 3.2 cm LVPWs: 1.7 cm LA Diam: 3.1 cm (2.7 - 3.8) LAESV Index (A-L): 21.80 ml/m Ao Diam: 3.2 cm (2.0 - 3.7) AV Cusp: 2.2 cm (1.5 - 2.6) MV EXCURSION: 20.954 mm (> 18.000) MV EF SLOPE: 106 mm/s (70 - 150) EPSS: 0.6 cm MV E Hari: 1.10 m/s MV DecT: 142 ms MV A Hari: 0.71 m/s MV E/A Ratio: 1.55 FINDINGS -------- Sinus rhythm. This was a technically good study. The left ventricular size is normal. There is borderline concentric left ventricular hypertrophy. Overall left ventricular systolic function is normal with, an EF between 55 - 60 %. The right ventricle is normal in size. Normal LA size by volume 22+/-6 ml/m2. The right atrium is normal in size. Interatrial and interventricular septum intact. The aortic valve is trileaflet and appears structurally normal. The mitral valve is normal. The tricuspid valve appears structurally normal. There is no pulmonic regurgitation present. The aortic root size is normal. Normal inferior vena cava with normal inspiratory collapse consistent with estimated right atrial pre ssure of 5 mmHg. There is no pericardial effusion. CONCLUSIONS -------- 1. The left ventricular size is normal. 2. There is borderline concentric left ventricular hypertrophy. 3. Normal LA size by volume 22+/-6 ml/m2. 4. There is no pericardial effusion. CARD FIXER: Charlene Samson RD
--- NOTE | 2020-08-06 12:02 | P.PN ---
Subjective Progress Note Date: 08/06/20 HISTORY OF PRESENT ILLNESS: Patient is s/p cardiac cath with Dr. Juarez revealing normal coronary arteries. Patient also had ventricular fibrillation during injection of RCA. Patient was cardioverted and has been maintaining sinus mechanism since. Mildly tachycardic this morning with a heart rate in the 110s. Patient does report being very anxious. He denies shortness of breath. Denies chest pain or pressure. PHYSICAL EXAM: VITAL SIGNS: Reviewed. GENERAL: Well-developed in no acute distress. NECK: Supple. No JVD or thyromegaly LUNGS: Respirations even and unlabored. Lungs essentially clear to auscultation bilaterally. HEART: Regular rate and rhythm. S1 and S2 heard. EXTREMITIES: Normal range of motion. No clubbing or cyanosis. Peripheral pulses intact. No lower extremity edema. Right radial cath site clean and dry. Pulse present. ASSESSMENT: Chest pain with abnormal troponin, s/p cardiac cath revealing normal coronary a rteries Iatrogenic ventricular fibrillation Hypokalemia PLAN: Obtain additional troponin level Obtain 2D echo to assess cardiac structure and function Continue aspirin and metoprolol Continue telemetry monitoring Anticipate discharge home tomorrow Nurse practitioner note has been reviewed by physician. Signing provider agrees with the documented findings, assessment, and plan of care. Objective - Vital Signs Vital signs: Vital Signs Temp 98.9 F 08/06/20 08:00 Pulse 85 08/06/20 11:00 Resp 17 08/06/20 11:00 BP 122/77 08/06/20 11:00 Pulse Ox 97 08/06/20 11:00 Intake & Output 08/05/20 08/06/20 08/06/20 18:59 06:59 18:59 Intake Total 650 300 Balance 650 300 Weight 77.9 kg Intake: IV 200 225 0.9 225 Intake, IV Titration 450 75 Amount Sodium Chloride 0.9% 1, 450 75 000 ml @ 75 mls/hr IV . [id number] [facility] Rx#:[id number] Other: Voiding Method Toilet Toilet # Voids 1 0 # Bowel Movements 1 - Labs CBC & Chem 7: 08/06/20 03:23 08/06/20 03:23 Labs: Abnormal Lab Results - Last 24 Hours (Table) 08/05/20 08/05/20 08/05/20 Range/Units 21:34 21:34 21:34 RBC (4.30-5.90) m/uL Hgb (13.0-17.5) gm/dL Hct 38.8 L (39.0-53.0) % Potassium 3.3 L (3.5-5.1) mmol/L Chloride 110 H (98-107) mmol/L Glucose (74-99) mg/dL POC Glucose (mg/dL) (75-99) mg/dL Calcium (8.4-10.2) mg/dL Troponin I 0.286 H* (0.000-0.034) ng/mL 08/06/20 08/06/20 08/06/20 Range/Units 01:02 03:23 03:23 RBC 4.04 L (4.30-5.90) m/uL Hgb 12.8 L (13.0-17.5) gm/dL Hct 36.4 L (39.0-53.0) % Potassium (3.5-5.1) mmol/L Chloride 110 H (98-107) mmol/L Glucose 108 H (74-99) mg/dL POC Glucose (mg/dL) 109 H (75-99) mg/dL Calcium 8.3 L (8.4-10.2) mg/dL Troponin I (0.000-0.034) ng/mL
--- NOTE | 2020-08-06 13:41 | P.HPIM ---
History of Present Illness Patient is a 43-year-old male came in with compensative chest discomfort which started while raking leaves in 8 his backyard this is not related to food patient had history of biliary sludge and a history of pain that radiates to cristina k of the shoulders whenever he eats fatty food or oily food. Patient denied any shortness of breath dizziness lightheadedness associated with that patient had mildly elevated troponins patient was taken to Printing Sign Machine Operator yesterday EKG did not show any acute ST-T wave changes patient is found to have clean coronaries patient doesn't appear to have any close chronic vascular disease. Patient does have history of hyperlipidemia. Patient underwent cardia catheterization and during the procedure patient went into atrial fibrillation because of the injection to the conus branch of RCA. Review of Systems REVIEW OF SYSTEMS: CONSTITUTIONAL: No fever, no malaise, no fatigue. HEENT: No recent visual problems or hearing problems. Denied any sore throat. CARDIOVASCULAR: No orthopnea, PND, no palpitations, no syncope. PULMONARY: No shortness of breath, no cough, no hemoptysis. GASTROINTESTINAL: No diarrhea, no nausea, no vomiting, no abdominal pain. NEUROLOGICAL: No headaches, no weakness, no numbness. HEMATOLOGICAL: Denies any bleeding or petechiae. GENITOURINARY: Denies any burning micturition, frequency, or urgency. MUSCULOSKELETAL/RHEUMATOLOGICAL: Denies any joint pain, swelling, or any muscle pain. ENDOCRINE: Denies any polyuria or polydipsia. The rest of the 14-point review of systems is negative. Past Medical History Past Medical History: Deep Vein Thrombosis (DVT) History of Any Multi-Drug Resistant Organisms: None Reported Past Surgical History: Orthopedic Surgery Additional Past Surgical History / Comment(s): lipomas removed Past Anesthesia/Blood Transfusion Reactions: No Reported Reaction Past Psychological History: No Psychological Hx Reported Smoking Status: Never smoker Past Alcohol Use History: Daily Past Drug Use History: None Reported - Past Family History Mother Family Medical History: Cancer Father Family Medical History: Cancer Medications and Allergies Home Medications Medication Instructions Recorded Confirmed Type Aspirin EC [Ecotrin] 325 mg PO DAILY 06/19/18 08/05/20 History EPINEPHrine (Auto Inject) [Epipen] 0.3 mg IM ONCE PRN 08/05/20 08/05/20 History Fluticasone Nasal [place] [Flonase 2 spr EA NOSTRIL DAILY PRN 08/05/20 08/05/20 History Nasal [place]] Meloxicam 15 mg PO DAILY 08/05/20 08/05/20 History Pantoprazole Sodium [Protonix] 40 mg PO DAILY 08/05/20 08/05/20 History Allergies Allergy/AdvReac Type Severity Reaction Status Date / Time Penicillins Allergy Unknown Verified 08/05/20 21:53 Childhood Physical Exam Vitals: Vital Signs Temp Pulse Pulse Resp BP Pulse Ox 08/06/20 12:00 98.3 F 72 19 114/74 96 08/06/20 11:00 85 17 122/77 97 08/06/20 10:00 86 14 130/85 93 L 08/06/20 09:00 21 112/74 96 08/06/20 08:00 98.9 F 86 64 18 105/70 94 L 08/06/20 07:00 90 17 101/65 94 L 08/06/20 06:00 75 15 94/67 94 L 08/06/20 05:00 77 16 94/70 94 L 08/06/20 04:00 98.4 F 75 64 13 107/82 94 L 08/06/20 03:00 73 17 104/75 92 L 08/06/20 02:00 79 15 105/76 95 08/06/20 01:50 82 14 96 08/06/20 01:40 77 18 95 08/06/20 01:30 80 13 95 08/06/20 01:20 79 15 94 L 08/06/20 01:10 84 12 95 08/06/20 01:00 98.2 F 82 18 117/81 97 08/06/20 00:20 98.5 F 08/05/20 23:40 78 18 122/83 97 08/05/20 23:20 81 18 121/94 97 08/05/20 23:00 90 18 138/102 97 08/05/20 22:57 97 18 145/100 98 08/05/20 22:29 92 18 133/102 96 08/05/20 21:54 96 18 129/100 98 08/05/20 21:28 96 08/05/20 21:11 98.0 F 100 18 146/85 98 Intake and Output 08/05/20 08/06/20 08/06/20 22:59 06:59 14:59 Intake Total 650 375 Balance 650 375 Intake: IV 200 300 0.9 300 Intake, IV Titration 450 75 Amount Sodium Chloride 0.9% 1, 450 75 000 ml @ 75 mls/hr IV . [id number] [facility] Rx#:[id number] Other: Voiding Method Toilet Toilet # Voids 1 0 # Bowel Movements 1 Weight 74.843 kg 77.9 kg PHYSICAL EXAMINATION: GENERAL: The patient is alert and oriented x3, not in any acute distress. Well developed, well nourished. HEENT: Pupils are round and equally reacting to light. EOMI. No scleral icterus. No conjunctival pallor. Normocephalic, atraumatic. No pharyngeal erythema. No thyromegaly. CARDIOVASCULAR: S1 and S2 present. No murmurs, rubs, or gallops. PULMONARY: Chest is clear to auscultation, no wheezing or crackles. ABDOMEN: Soft, nontender, nondistended, normoactive bowel sounds. No palpable organomegaly. MUSCULOSKELETAL: No joint swelling or deformity. EXTREMITIES: No cyanosis, clubbing, or pedal edema. NEUROLOGICAL: Gross neurological examination did not reveal any focal deficits. SKIN: No rashes. Results CBC & Chem 7: 08/06/20 03:23 08/06/20 03:23 Labs: Abnormal Lab Results - Last 24 Hours (Table) 08/05/20 08/05/20 08/05/20 Range/Units 21:34 21:34 21:34 RBC (4.30-5.90) m/uL Hgb (13.0-17.5) gm/dL Hct 38.8 L (39.0-53.0) % Potassium 3.3 L (3.5-5.1) mmol/L Chloride 110 H (98-107) mmol/L Glucose (74-99) mg/dL POC Glucose (mg/dL) (75-99) mg/dL Calcium (8.4-10.2) mg/dL Troponin I 0.286 H* (0.000-0.034) ng/mL 08/06/20 08/06/20 08/06/20 Range/Units 01:02 03:23 03:23 RBC 4.04 L (4.30-5.90) m/uL Hgb 12.8 L (13.0-17.5) gm/dL Hct 36.4 L (39.0-53.0) % Potassium (3.5-5.1) mmol/L Chloride 110 H (98-107) mmol/L Glucose 108 H (74-99) mg/dL POC Glucose (mg/dL) 109 H (75-99) mg/dL Calcium 8.3 L (8.4-10.2) mg/dL Troponin I (0.000-0.034) ng/mL 08/06/20 Range/Units 11:02 RBC (4.30-5.90) m/uL Hgb (13.0-17.5) gm/dL Hct (39.0-53.0) % Potassium (3.5-5.1) mmol/L Chloride (98-107) mmol/L Glucose (74-99) mg/dL POC Glucose (mg/dL) (75-99) mg/dL Calcium (8.4-10.2) mg/dL Troponin I 0.139 H* (0.000-0.034) ng/mL Thrombosis Risk Factor Assmnt - Choose All That Apply Each Factor Represents 1 point: Age 41-60 years Thrombosis Risk Factor Assessment Total Risk Factor Score: 1 Thrombosis Risk Factor Assessment Level: Low Risk Assessment and Plan Plan: Chest pain with mild elevation of troponins: Patient is status post cardiac ablation which showed a clean coronaries I still cannot rule out biliary sludge intermittent his symptoms because of which I consulted general surgery after the evaluation by general surgery patient probably will be discharged -A brief episode of V. tach during cardiac catheterization, patient will be discharged on a small dose of beta francesco as recommended by cardiology -History of DVT in the past. -Hyperlipidemia coronary appears to have history of hyperlipidemia. Patient presently is not on any statin at this time. Lipid panel was not obtained today morning. This can be done as an outpatient. Patient will be discharged today cleared by cardiology after evaluation by general surgery
--- NOTE | 2020-08-06 13:41 | P.DS ---
Providers Date of admission: 08/06/20 00:08 Attending physician: Zuleyka Harmon Consults: 08/06/20 09:15 Consult Physician Routine Consulting Provider: Gigi Juarez Consult Reason/Comments: Post-cardiac cath management Do you want consulting provider notified?: Already Contacted 08/06/20 11:50 Consult Physician Routine Consulting Provider: Theodore Diaz Consult Reason/Comments: Gallbladder Do you want consulting provider notified?: Yes Primary care physician: Leonor Clark MD Hospital Course: As mentioned in HPI Patient Condition at Discharge: Critical Plan - Discharge Summary Discharge Rx Participant: No New Discharge Prescriptions: New Aspirin 81 mg PO DAILY #30 chew Metoprolol Succinate (ER) [Toprol XL] 25 mg PO DAILY #30 tab.er.24h Continue Fluticasone Nasal [place] [Flonase Nasal [place]] 2 spr EA NOSTRIL DAILY PRN PRN Reason: Allergy Symptoms EPINEPHrine (Auto Inject) [Epipen] 0.3 mg IM ONCE PRN PRN Reason: Anaphylaxis Pantoprazole Sodium [Protonix] 40 mg PO DAILY Meloxicam 15 mg PO DAILY Discontinued Aspirin EC [Ecotrin] 325 mg PO DAILY Ibuprofen [Motrin] 800 mg PO BID PRN PRN Reason: Pain Discharge Medication List EPINEPHrine (Auto Inject) [Epipen] 0.3 mg IM ONCE PRN 08/05/20 [History] Fluticasone Nasal [place] [Flonase Nasal [place]] 2 spr EA NOSTRIL DAILY PRN 08/05/20 [History] Meloxicam 15 mg PO DAILY 08/05/20 [History] Pantoprazole Sodium [Protonix] 40 mg PO DAILY 08/05/20 [History] Aspirin 81 mg PO DAILY #30 chew 08/06/20 [Rx] Metoprolol Succinate (ER) [Toprol XL] 25 mg PO DAILY #30 tab.er.24h 08/06/20 [Rx] Follow up Appointment(s)/Referral(s): Gigi Juarez MD [STAFF PHYSICIAN] - 1 Week Ambrocio Morales MD [REFERRING] - 3 Days Theodore Diaz MD [STAFF PHYSICIAN] - 1 Week
[2020-08-06 13:57] VITALS: BP 129/84; PULSE 85; RESP 16; TEMP 98.2
== END 2020-08-06 18:24 | disposition home or self-care (01) ==
LOC: EC 21:09 → 2SICU 08-06 00:08 → INTOOBSV 08-06 00:08 → 3SCARD 08-06 13:41 → UNDODISIN 08-06 18:24
PROVIDERS: ADMIT Hospitalist; ATTEND Hospitalist
DX: R07.89 Other chest pain (principal); R79.89 Other specified abnormal findings of blood chemistry; I49.01 Ventricular fibrillation; Y84.0 Cardiac catheterization as the cause of abnormal reaction of the patient, or of later complication, without mention of misadventure at the time of the procedure; E87.6 Hypokalemia; I10 Essential (primary) hypertension; E78.5 Hyperlipidemia, unspecified; Z79.82 Long term (current) use of aspirin; Z79.1 Long term (current) use of non-steroidal anti-inflammatories (NSAID); Z79.899 Other long term (current) drug therapy; Z88.0 Allergy status to penicillin; Z86.718 Personal history of other venous thrombosis and embolism; Z98.890 Other specified postprocedural states; Z80.9 Family history of malignant neoplasm, unspecified
CPT/HCPCS: 93005 ×2; 96374; 96375; 99291; 36415; 93306; 93454 ×2; 80053; 80048; 82150; 83690; 83735; 84484 ×2; 85025 ×2; 85610; 85730; 87635; 71046; G0378 ×2; C1894 ×2; C1769; J2250; J2270; J2001; J3010; J1170; Q9967; J1644

== ENCOUNTER 2020-09-03 06:36 | Day surgery (SDC) | payer OTHER ==
[2020-09-02 08:39] VITALS: BMI 23.6
[~2020-09-03 06:36] MED LIST changes: +ACETAMINOPHEN TAB 500 MG TAB PO PRN; +DEXAMETHASONE SOD PHOSPHATE 4 MG/ML 1 ML VIAL IV ONE; +HEPARIN SODIUM,PORCINE/PF 5,000 UNIT/0.5 ML SYRINGE SQ PRN; -IV FLUID CONTINUATION 1,000 ML IV ONE; +LACTATED RINGERS 1,000 ML IV SCH; +LIDOCAINE 1% (10MG/ML) FOR IV START INTRADERMA PRN
[2020-09-03] MEDS ORDERED: HYDROmorphone 0.5 MG/0.5 ML SYRINGE IVP PRN (07:00)
[2020-09-03] MEDS: ONDANSETRON 4 MG/2 ML VIAL IVP ONE ×2 (07:30→09:36)
[2020-09-03] MEDS ORDERED: MIDAZOLAM 2 MG/2 ML VIAL IV ONE (07:48)
[2020-09-03] MEDS ORDERED: LIDOCAINE 1% INJ 10MG/ML (20 ML MDV) ONE (07:55)
[2020-09-03] MEDS ORDERED: PROPOFOL 10 MG/ML 20 ML VIAL IV ONE (07:55)
[2020-09-03] MEDS ORDERED: GLYCOPYRROLATE 0.2 MG/ML 2 ML VIAL ONE (07:55)
[2020-09-03] MEDS ORDERED: ROCURONIUM 10 MG/ML (5 ML VIAL) IV ONE (07:55)
[2020-09-03] MEDS ORDERED: SUCCINYLCHOLINE CHLORIDE 100 MG/5 ML SYR IV ONE (07:55)
[2020-09-03] MEDS ORDERED: fentaNYL (PF) 50 MCG/ML 2 ML AMP ONE (07:55)
[2020-09-03] MEDS ORDERED: NEOSTIGMINE 1 MG/ML 10 ML VIAL ONE (07:55)
[2020-09-03] MEDS ORDERED: BUPIVACAINE (PF) 0.25% 30 ML VIAL SQ ONE (08:18)
[2020-09-03 09:00] VITALS: TEMP 98.7
[2020-09-03] MEDS ORDERED: KETOROLAC 15 MG/ML 1 ML VIAL IVP ONE (09:00)
--- NOTE | 2020-09-03 09:06 | P.GSHP ---
History of Present Illness H&P Date: 09/03/20 Chief Complaint: Right upper quadrant pain This a 45-year-old male who's had chronic issues right quadrant pain. Patient states he has pain after eating greasy and fried foods. He presents today for laparoscopic ostectomy for chronic cholecystitis. Past Medical History Past Medical History: Chest Pain / Angina, Deep Vein Thrombosis (DVT), Hypertension Additional Past Medical History / Comment(s): "chest cramping". troponin elevation July History of Any Multi-Drug Resistant Organisms: None Reported Past Surgical History: Heart Catheterization, Orthopedic Surgery Additional Past Surgical History / Comment(s): 20+ lipomas removed. rt ankle with 3 surgeries. lt shoulder surgery Past Anesthesia/Blood Transfusion Reactions: No Reported Reaction Smoking Status: Never smoker - Past Family History Mother Family Medical History: Cancer Additional Family Medical History / Comment(s): lung and brain cancer Father Family Medical History: Cancer Additional Family Medical History / Comment(s): throat cancer Medications and Allergies Home Medications Medication Instructions Recorded Confirmed Type Aspirin 81 mg PO DAILY #30 chew 08/06/20 08/22/20 Rx Fiber Supplement 1 dose PO DAILY 08/22/20 09/02/20 History Garlic 1 each PO DAILY 08/22/20 09/02/20 History L.acidoph,Paracasei, B.lactis 1 each PO DAILY 08/22/20 09/02/20 History [Probiotic] Meloxicam [Mobic] 15 mg PO DAILY 08/22/20 09/02/20 History [place]-3 Fatty Acids/Fish Oil [Fish 1 each PO DAILY 08/22/20 09/02/20 History Oil 1,000 mg Softgel] Prebiotic 1 dose PO DAILY 08/22/20 History ALPRAZolam [Xanax] 0.25 mg PO DAILY PRN 09/02/20 09/02/20 History lisinopriL [Prinivil] 20 mg PO DAILY 09/02/20 09/02/20 History Allergies Allergy/AdvReac Type Severity Reaction Status Date / Time Penicillins Allergy Unknown Verified 09/03/20 07:04 Childhood Surgical - Exam Vital Signs Temp Pulse Resp BP Pulse Ox 97.9 F 88 16 144/92 100 09/03/20 07:12 09/03/20 07:12 09/03/20 07:12 09/03/20 07:12 09/03/20 07:12 - General well developed, well nourished, no distress - Eyes PERRL - ENT normal pinna - Neck no masses - Respiratory normal expansion - Cardiovascular Rhythm: regular - Abdomen Abdomen: soft, non tender, tender (Mild tenderness right upper quadrant) Assessment and Plan Assessment: Chronic cholecystitis. We'll perform laparoscopic cholecystectomy
--- NOTE | 2020-09-03 09:07 | P.OP ---
Date of Procedure: 09/03/20 Preoperative Diagnosis: Cholecystitis Postoperative Diagnosis: Cholecystitis Procedure(s) Performed: Laparoscopic cholecystectomy Anesthesia: DAVY Surgeon: Theodore Diaz Pathology: other (Gallbladder) Condition: stable Disposition: PACU Description of Procedure: The patient was placed on the operating table. The patient received a general endotracheal tube anesthesia. The patients abdomen was prepped and draped in the usual sterile fashion. Through an infraumbilical stab incision, the fascia of the anterior abdominal wall was grasped with a pair of Kochers and then the Veress needle was placed in the peritoneal cavity. Position of the Veress needle was confirmed with positive drop test. The abdomen was then insufflated. After adequate insufflation, the 10 mm trocar was placed in the peritoneal cavity. Following this the laparoscope was placed in the peritoneal cavity. The patient was placed in the head-up, right side up position and then a 5 mm trocar was placed in the right lateral and right subcostal position under direct visualization. A 8 mm trocar was placed in the epigastric position. The gallbladder was grasped in the fundus and infundibulum. Traction on the gallbladder was placed in the lateral and the cephalad positions. The triangle of Calot was visualized.. The cystic duct was bluntly dissected until the union of the cystic duct and common bile duct was seen. A critical view of safety was achieved. The cystic duct was then divided and sealed with the Harmonic scissors. A PDS Endoloop was then placed throughout the cystic duct stump. The cystic artery divided and sealed with the Harmonic scissors. The gallbladder was then removed from the liver bed using Harmonic scissors. The gallbladder was then extracted through the epigastric port site. Operative field was checked for any bleeding spots and Harmonic scissors was used to coagulate the liver bed. The abdomen was irrigated. The trocars were removed. The skin was closed using interrupted 3-0 Vicryl suture. Dermabond dressing were applied. The patient tolerated the procedure well.
[2020-09-03] MEDS ORDERED: LACTATED RINGERS 1,000 ML IV ONE (09:19)
[2020-09-03 10:03] VITALS: RESP 16
[2020-09-03 12:12] VITALS: BP 144/81; PULSE 65
== END 2020-09-03 12:02 | disposition home or self-care (01) ==
LOC: OR 06:36
PROVIDERS: ATTEND Surgery
DX: K81.1 Chronic cholecystitis (principal); I10 Essential (primary) hypertension; Z86.718 Personal history of other venous thrombosis and embolism; Z98.890 Other specified postprocedural states; Z80.0 Family history of malignant neoplasm of digestive organs; Z79.1 Long term (current) use of non-steroidal anti-inflammatories (NSAID); Z79.82 Long term (current) use of aspirin; Z79.899 Other long term (current) drug therapy; Z88.0 Allergy status to penicillin
CPT/HCPCS: 88304; 47562; J2250; J1100; J2710; J0690; J2405; J2001; J3010; J1885; J0330; J2704; J1170; J1644

== ENCOUNTER 2020-09-05 09:36 | Emergency (ER) | payer OTHER ==
[2020-09-05] MEDS ORDERED: SODIUM CHLORIDE 0.9% 1,000 ML IV STA (10:20)
--- NOTE | 2020-09-05 10:27 | ED ---
General Adult HPI - General Chief complaint: Extremity Problem,Nontraumatic Stated complaint: Lt Leg Pain/Unable to Urinate Time Seen by Provider: 09/05/20 09:56 Source: patient, RN notes reviewed Mode of arrival: ambulatory Limitations: no limitations - History of Present Illness Initial comments: 45-year-old white male presents emergency room with complaints of left lower extremity tightness which felt like his previous DVT in his right leg. Patient states he had a cholecystectomy surgery on Wednesday. Patient states that when he woke this morning he also had difficulty urinating but after he had a bowel movement was able to urinate and feels better. Patient also complaining of some chest pain yesterday which was exacerbated by cold air at the baseball game last night. Patient states that chest pain is gone at this time. Patient states th at the pain in his chest occurred after the pain in his left leg. Patient is alert and oriented 4. Patient denies smoking history. -: days(s) (1) Location: left, lower extremity Improves with: rest Worsens with: movement Associated Symptoms: chest pain Treatments Prior to Arrival: Aspirin - Related Data Home Medications Medication Instructions Recorded Confirmed Garlic 1 each PO DAILY 08/22/20 09/05/20 L.acidoph,Paracasei, B.lactis 1 each PO DAILY 08/22/20 09/05/20 [Probiotic] Meloxicam [Mobic] 15 mg PO DAILY PRN 08/22/20 09/05/20 [place]-3 Fatty Acids/Fish Oil [Fish 1 each PO DAILY 08/22/20 09/05/20 Oil 1,000 mg Softgel] ALPRAZolam [Xanax] 0.25 mg PO DAILY PRN 09/02/20 09/05/20 Docusate [Colace] 100 mg PO BID PRN 09/05/20 09/05/20 Previous Rx's Medication Instructions Recorded Aspirin 81 mg PO DAILY #30 chew 08/06/20 Acetaminophen Tab [Tylenol] 650 mg PO Q6H #30 tab 09/03/20 Ibuprofen [Motrin] 600 mg PO Q6HR PRN #40 tab 09/03/20 oxyCODONE HCL [OxyIR] 5 mg PO Q6H PRN 3 Days #10 tab 09/03/20 Tamsulosin [Flomax] 0.4 mg PO DAILY #3 cap 09/05/20 Allergies Allergy/AdvReac Type Severity Reaction Status Date / Time Penicillins Allergy Unknown Verified 09/05/20 11:07 Childhood Review of Systems ROS Statement: Those systems with pertinent positive or pertinent negative responses have been documented in the HPI. ROS Other: All systems not noted in ROS Statement are negative. Past Medical History Past Medical History: GERD/Reflux Additional Past Medical History / Comment(s): heart palpitations, hx of blood clot right calf after ankle fx, states throat pain, chronic diarrhea for 10 years., History of Any Multi-Drug Resistant Organisms: None Reported Past Surgical History: Cholecystectomy, Heart Catheterization Additional Past Surgical History / Comment(s): 22 lipomas removed, left shoulder surgery, surgeries on right ankle fx repair and removal of hardware. Past Anesthesia/Blood Transfusion Reactions: No Reported Reaction Past Psychological History: No Psychological Hx Reported Smoking Status: Never smoker Past Alcohol Use History: Occasional Past Drug Use History: None Reported - Past Family History Mother Family Medical History: Cancer Additional Family Medical History / Comment(s): lung and brain cancer Father Family Medical History: Cancer Additional Family Medical History / Comment(s): throat cancer General Exam Limitations: no limitations General appearance: alert, in no apparent distress Head exam: Present: atraumatic, normocephalic, normal inspection Eye exam: Present: normal appearance, PERRL, EOMI. Absent: scleral icterus, conjunctival injection, periorbital swelling ENT exam: Present: normal exam, normal oropharynx, mucous membranes moist Neck exam: Present: normal inspection, full ROM. Absent: tenderness, meningismus, lymphadenopathy, thyromegaly Respiratory exam: Present: normal lung sounds bilaterally. Absent: respiratory distress, wheezes, rales, rhonchi, stridor, decreased breath sounds Cardiovascular Exam: Present: regular rate, normal rhythm, normal heart sounds. Absent: systolic murmur, diastolic murmur, rubs, gallop, clicks, JVD GI/Abdominal exam: Present: soft, normal bowel sounds, other (Cholecystectomy incisions noted, clean dry and intact with no drainage). Absent: distended, tenderness, guarding, rebound, rigid Extremities exam: Present: normal inspection, full ROM, normal capillary refill, calf tenderness (Pain with calf Squeeze). Absent: tenderness, pedal edema, joint swelling Back exam: Present: normal inspection, full ROM. Absent: tenderness, CVA tenderness (R), CVA tenderness (L), muscle spasm, paraspinal tenderness, vertebral tenderness, rash noted Neurological exam: Present: alert, oriented X3, CN II-XII intact Psychiatric exam: Present: normal affect, normal mood Skin exam: Present: warm, dry, intact, normal color. Absent: rash, cyanosis, diaphoretic, erythema, pallor, mottled Course Vital Signs 09/05/20 09/05/20 09:43 11:29 Temperature 97.8 F 98.2 F Pulse Rate 74 82 Respiratory 16 16 Rate Blood Pressure 129/91 143/87 O2 Sat by Pulse 99 100 Oximetry EKG Findings - EKG Results: EKG: WNL (Ventricular 69, MD interval 0.170, QRS of 0.102, QTC 0.426) Medical Decision Making - Medical Decision Making Chest x-ray negative for any acute cardiopulmonary process. Ultrasound left lower extremity negative for DVT. Labs are within normal limits including WBC count 6.2 and a Ventolin and hematocrit 15 and 43 respectively, troponin negative at 0.012. Patient was able to urinate in the emergency room without any difficulties. Patient agreeable to being discharged home and following up as scheduled on September 10 for his post surgical evaluation. Patient is requesting 3 doses of Flomax as needed, states that after anesthesia he sometimes has a couple of days of difficulty initiating urine flow and would feel better having medication, which was provided. Bladder scan done in ER with Postvoid Residual Showing 0ml. case discussed with Dr. Andres was agreeable to this and care. - Lab Data Result diagrams: 09/05/20 10:44 09/05/20 10:44 Lab Results 09/05/20 09/05/20 09/05/20 Range/Units 10:44 10:44 10:44 WBC 6.2 (3.8-10.6) k/uL RBC 4.95 (4.30-5.90) m/uL Hgb 15.6 (13.0-17.5) gm/dL Hct 43.7 (39.0-53.0) % MCV 88.2 (80.0-100.0) fL MCH 31.5 (25.0-35.0) pg MCHC 35.7 (31.0-37.0) g/dL RDW 12.0 (11.5-15.5) % Plt Count 232 (150-450) k/uL MPV 6.9 Neutrophils % 63 % Lymphocytes % 27 % Monocytes % 7 % Eosinophils % 2 % Basophils % 1 % Neutrophils # 3.9 (1.3-7.7) k/uL Lymphocytes # 1.7 (1.0-4.8) k/uL Monocytes # 0.4 (0-1.0) k/uL Eosinophils # 0.1 (0-0.7) k/uL Basophils # 0.0 (0-0.2) k/uL PT 9.9 (9.0-12.0) sec INR 0.9 (<1.2) APTT 22.7 (22.0-30.0) sec Sodium (137-145) mmol/L Potassium (3.5-5.1) mmol/L Chloride (98-107) mmol/L Carbon Dioxide (22-30) mmol/L Anion Gap mmol/L BUN (9-20) mg/dL Creatinine (0.66-1.25) mg/dL Est GFR (CKD-EPI)AfAm (>60 ml/min/1.73 sqM) Est GFR (CKD-EPI)NonAf (>60 ml/min/1.73 sqM) Glucose (74-99) mg/dL Calcium (8.4-10.2) mg/dL Magnesium (1.6-2.3) mg/dL Total Bilirubin (0.2-1.3) mg/dL AST (17-59) U/L ALT (4-49) U/L Alkaline Phosphatase (38-126) U/L Troponin I (0.000-0.034) ng/mL Total Protein (6.3-8.2) g/dL Albumin (3.5-5.0) g/dL Urine Color Light Yellow Urine Appearance Clear (Clear) Urine pH 6.0 (5.0-8.0) Ur Specific [place] 1.014 (1.001-1.035) Urine Protein Negative (Negative) Urine Glucose (UA) Negative (Negative) Urine Ketones Negative (Negative) Urine Blood Negative (Negative) Urine Nitrite Negative (Negative) Urine Bilirubin Negative (Negative) Urine Urobilinogen <2.0 (<2.0) mg/dL Ur Leukocyte Esterase Negative (Negative) 09/05/20 09/05/20 Range/Units 10:44 10:44 WBC (3.8-10.6) k/uL RBC (4.30-5.90) m/uL Hgb (13.0-17.5) gm/dL Hct (39.0-53.0) % MCV (80.0-100.0) fL MCH (25.0-35.0) pg MCHC (31.0-37.0) g/dL RDW (11.5-15.5) % Plt Count (150-450) k/uL MPV Neutrophils % % Lymphocytes % % Monocytes % % Eosinophils % % Basophils % % Neutrophils # (1.3-7.7) k/uL Lymphocytes # (1.0-4.8) k/uL Monocytes # (0-1.0) k/uL Eosinophils # (0-0.7) k/uL Basophils # (0-0.2) k/uL PT (9.0-12.0) sec INR (<1.2) APTT (22.0-30.0) sec Sodium 139 (137-145) mmol/L Potassium 4.4 (3.5-5.1) mmol/L Chloride 106 (98-107) mmol/L Carbon Dioxide 24 (22-30) mmol/L Anion Gap 9 mmol/L BUN 15 (9-20) mg/dL Creatinine 0.96 (0.66-1.25) mg/dL Est GFR (CKD-EPI)AfAm >90 (>60 ml/min/1.73 sqM) Est GFR (CKD-EPI)NonAf >90 (>60 ml/min/1.73 sqM) Glucose 89 (74-99) mg/dL Calcium 10.0 (8.4-10.2) mg/dL Magnesium 2.1 (1.6-2.3) mg/dL Total Bilirubin 0.8 (0.2-1.3) mg/dL AST 40 (17-59) U/L ALT 45 (4-49) U/L Alkaline Phosphatase 74 (38-126) U/L Troponin I <0.012 (0.000-0.034) ng/mL Total Protein 7.4 (6.3-8.2) g/dL Albumin 4.7 (3.5-5.0) g/dL Urine Color Urine Appearance (Clear) Urine pH (5.0-8.0) Ur Specific [place] (1.001-1.035) Urine Protein (Negative) Urine Glucose (UA) (Negative) Urine Ketones (Negative) Urine Blood (Negative) Urine Nitrite (Negative) Urine Bilirubin (Negative) Urine Urobilinogen (<2.0) mg/dL Ur Leukocyte Esterase (Negative) Disposition Clinical Impression: Postoperative urinary retention, Leg pain, left Disposition: HOME SELF-CARE Condition: Good Instructions (If sedation given, give patient instructions): Urinary Retention in Men (ED), Leg Pain (ED) Prescriptions: Tamsulosin [Flomax] 0.4 mg PO DAILY #3 cap Is patient prescribed a controlled substance at d/c from ED?: No Referrals: Leonor Clark MD [Primary Care Provider] - 1-2 days Marciano Montes De Oca MD [STAFF PHYSICIAN] - 1-2 days Time of Disposition: 13:09
--- NOTE | 2020-09-05 10:58 | XR ---
EXAMINATION TYPE: XR chest 2V DATE OF EXAM: 09/05/2020 COMPARISON: 08/05/2020 TECHNIQUE: PA and lateral views submitted. HISTORY: Chest pain FINDINGS: The lungs are clear and there is no pneumothorax, pleural effusion, or focal pneumonia. Heart size normal. No overt failure. IMPRESSION: 1. No acute process.
[2020-09-05 11:23] LABS: Appearance,Urine Clear (Clear); Bilirubin,Urine Negative (Negative); Blood,Urine Negative (Negative); Color,Urine Light Yellow; Glucose,Urine (UA) Negative (Negative); INR 0.9 (<1.2); Ketones,Urine Negative (Negative); Leukocyte Esterase,Urine Negative (Negative); Nitrite,Urine Negative (Negative); Protein,Urine Negative (Negative); Specific Gravity,Urine 1.014 (1.001-1.035); Urobilinogen,Urine <2.0 mg/dL (<2.0)
[2020-09-05 11:24] LABS: ALT 45 U/L (4-49); AST 40 U/L (17-59); African American GFR (CKD) >90 (>60 ml/min/1.73 sqM); Albumin 4.7 g/dL (3.5-5.0); Alkaline Phosphatase 74 U/L (38-126); Anion Gap 9 mmol/L; Blood Urea Nitrogen 15 mg/dL (9-20); Carbon Dioxide 24 mmol/L (22-30); Chloride 106 mmol/L (98-107); Glucose 89 mg/dL (74-99); Magnesium 2.1 mg/dL (1.6-2.3); Non-African American GFR(CKD) >90 (>60 ml/min/1.73 sqM); Partial Thromboplastin Time 22.7 sec (22.0-30.0); Potassium 4.4 mmol/L (3.5-5.1); Prothrombin Time 9.9 sec (9.0-12.0); Sodium 139 mmol/L (137-145); Total Bilirubin 0.8 mg/dL (0.2-1.3); Total Protein 7.4 g/dL (6.3-8.2)
[2020-09-05 11:26] LABS: Basophils % (A) 1 %; Eosinophils # (A) 0.1 k/uL (0-0.7); Eosinophils % (A) 2 %; HCT 43.7 % (39.0-53.0); HGB 15.6 gm/dL (13.0-17.5); Lymphocytes # (A) 1.7 k/uL (1.0-4.8); Lymphocytes % (A) 27 %; MCH 31.5 pg (25.0-35.0); MCHC 35.7 g/dL (31.0-37.0); MCV 88.2 fL (80.0-100.0); Mean Platelet Volume 6.9; Monocytes # (A) 0.4 k/uL (0-1.0); Monocytes % (A) 7 %; Neutrophils # (A) 3.9 k/uL (1.3-7.7); Neutrophils % (A) 63 %; Platelet Count 232 k/uL (150-450); RBC 4.95 m/uL (4.30-5.90); WBC 6.2 k/uL (3.8-10.6)
--- NOTE | 2020-09-05 11:26 | US ---
EXAMINATION TYPE: US venous doppler duplex LE LT DATE OF EXAM: 09/05/2020 10:23 AM COMPARISON: NONE CLINICAL HISTORY: Rule out DVT, status post abd surgery wednesday. SIDE PERFORMED: Left TECHNIQUE: The lower extremity deep venous system is examined utilizing real time linear array sonog daily with graded compression, doppler sonography and color-flow sonography. VESSELS IMAGED: Common Femoral Vein Deep Femoral Vein Greater Saphenous Vein * Femoral Vein Popliteal Vein Proximal Calf Veins (* superficial vessels) Left Leg: Negative for DVT IMPRESSION: No sonographic evidence for deep vein thrombosis of the left lower extremity.
[2020-09-05 13:37] VITALS: BP 138/88; PULSE 68; RESP 18; TEMP 99.1
== END 2020-09-05 13:37 | disposition home or self-care (01) ==
LOC: EC 09:36
DX: R33.9 Retention of urine, unspecified (principal); M79.605 Pain in left leg; R07.9 Chest pain, unspecified; K21.9 Gastro-esophageal reflux disease without esophagitis; Z79.82 Long term (current) use of aspirin; Z79.1 Long term (current) use of non-steroidal anti-inflammatories (NSAID); Z88.0 Allergy status to penicillin; Z90.49 Acquired absence of other specified parts of digestive tract
CPT/HCPCS: 36415; 51798; 71046; 80053; 81003; 83735; 84484; 85025; 85610; 85730; 93005; 96360; 99285

== ENCOUNTER 2021-03-02 10:27 | Emergency (ER) | payer OTHER ==
[2021-03-02 10:34] VITALS: RESP 18; TEMP 97.7
--- NOTE | 2021-03-02 11:01 | ED ---
General Adult HPI - General Chief complaint: Upper Respiratory Infection Stated complaint: Covid+/BAM Time Seen by Provider: 03/02/21 10:51 Source: patient Mode of arrival: ambulatory Limitations: no limitations - History of Present Illness Initial comments: 46-year-old male presents to the emergency room for it antibody infusion. Patient states he tested positive for COVID-19 yesterday at [facility]. He had a full workup there including a CAT scan of the chest which was negative. They advised him to get antibodies but [facility] could not manage this until Wednesday apparently so told him to come here. Patient states he has cough congestion and body aches. He did have palpitations yesterday but was evaluated for this. States he is only here for antibodies. Patient is not vaccinated for COVID-19.Patient has no other complaints at this time including shortness of breath, chest pain, abdominal pain, nausea or vomiting, headache, or visual changes. - Related Data Home Medications Medication Instructions Recorded Confirmed Garlic 1 each PO DAILY 08/22/20 01/02/21 [place]-3 Fatty Acids/Fish Oil [Fish 1 each PO DAILY 08/22/20 01/02/21 Oil 1,000 mg Softgel] Cholecalciferol (Vitamin D3) 125 mcg PO DAILY 01/02/21 01/02/21 [Vitamin D3 (125 MCG = 5,000 IU)] Previous Rx's Medication Instructions Recorded Aspirin 81 mg PO DAILY #30 chew 08/06/20 Allergies Allergy/AdvReac Type Severity Reaction Status Date / Time Penicillins Allergy Unknown Verified 03/02/21 10:34 Childhood Review of Systems ROS Statement: Those systems with pertinent positive or pertinent negative responses have been documented in the HPI. ROS Other: All systems not noted in ROS Statement are negative. Past Medical History Past Medical History: Deep Vein Thrombosis (DVT), GERD/Reflux Additional Past Medical History / Comment(s): heart palpitations, hx of blood clot right calf after ankle fx, states throat pain, chronic diarrhea for 10 years., covid History of Any Multi-Drug Resistant Organisms: None Reported Past Surgical History: Cholecystectomy, Heart Catheterization, Orthopedic Surgery Additional Past Surgical History / Comment(s): 22 lipomas removed, left shoulder surgery, surgeries on right ankle fx repair and removal of hardware. COLONOSCOPY Past Anesthesia/Blood Transfusion Reactions: No Reported Reaction Past Psychological History: No Psychological Hx Reported Smoking Status: Never smoker Past Alcohol Use History: None Reported Past Drug Use History: None Reported - Past Family History Mother Family Medical History: Cancer Additional Family Medical History / Comment(s): lung and brain cancer Father Family Medical History: Cancer Additional Family Medical History / Comment(s): throat cancer General Exam Limitations: no limitations General appearance: alert, in no apparent distress Head exam: Present: atraumatic Eye exam: Present: normal appearance, PERRL, EOMI. Absent: scleral icterus, conjunctival injection ENT exam: Present: normal exam, mucous membranes moist Neck exam: Present: normal inspection, full ROM. Absent: tenderness Respiratory exam: Present: normal lung sounds bilaterally. Absent: respiratory distress, wheezes Cardiovascular Exam: Present: regular rate, normal rhythm, normal heart sounds GI/Abdominal exam: Present: soft, normal bowel sounds. Absent: distended, tenderness Neurological exam: Present: alert Course Vital Signs 03/02/21 10:31 Temperature 97.7 F Pulse Rate 101 H Respiratory 18 Rate Blood Pressure 187/90 O2 Sat by Pulse 100 Oximetry Medical Decision Making - Medical Decision Making Vitals are stable. Patient is hypertensive which she states she has a history of. Patient states he is anxious. Patient had a full workup including blood work and a CAT scan at [facility] yesterday that was negative. Patient is not here for any workup and only wants antibody infusion. This was ordered for him and he was monitored for an hour after infusion completed. He was given strict return parameters. He will follow-up with his doctor otherwise. Disposition Clinical Impression: COVID-19 Disposition: HOME SELF-CARE Condition: Good Instructions (If sedation given, give patient instructions): Coronavirus Disease 2019 (COVID-19) Additional Instructions: Please take Motrin and Tylenol for pain or fever. Take vitamin C, D, and zinc [id number]. Drink plenty of fluids. Follow-up with primary care. Return to the emergency room for any worsening symptoms. Is patient prescribed a controlled substance at d/c from ED?: No Referrals: Leonor Clark MD [Primary Care Provider] - 1-2 days Time of Disposition: 11:00
[2021-03-02] MEDS ORDERED: SODIUM CHLORIDE 0.9% 50 ML IVPB ONE (11:30)
[2021-03-02] MEDS ORDERED: BAMLANIVIMAB (EUA) 700 MG, ETESEVIMAB (EUA) 1,400 MG in SODIUM CHLORIDE 0.9% 50 ML IVPB ONE (11:30)
[2021-03-02 13:31] VITALS: BP 137/98; PULSE 88
== END 2021-03-02 13:31 | disposition home or self-care (01) ==
LOC: EC 10:27
DX: U07.1 COVID-19 (principal); K21.9 Gastro-esophageal reflux disease without esophagitis; Z79.82 Long term (current) use of aspirin; Z88.0 Allergy status to penicillin; Z86.718 Personal history of other venous thrombosis and embolism; Z90.49 Acquired absence of other specified parts of digestive tract
CPT/HCPCS: 96360; 99283; M0245

== ENCOUNTER 2021-07-30 09:21 | Day surgery (SDC) | payer OTHER ==
[2021-07-29 13:08] VITALS: BMI 23.9
[~2021-07-30 09:21] MED LIST changes: -ACETAMINOPHEN TAB 500 MG TAB PO PRN; -DEXAMETHASONE SOD PHOSPHATE 4 MG/ML 1 ML VIAL IV ONE; -HEPARIN SODIUM,PORCINE/PF 5,000 UNIT/0.5 ML SYRINGE SQ PRN
[2021-07-30 10:04] VITALS: RESP 16; TEMP 97.8
[2021-07-30] MEDS ORDERED: PROPOFOL 10 MG/ML 20 ML VIAL IV ONE (10:39)
[2021-07-30] MEDS ORDERED: LIDOCAINE 2% INJ 20 MG/ML (2 ML VIAL) ONE (10:39)
--- NOTE | 2021-07-30 10:52 | P.PCN ---
Date of Procedure: 07/30/21 Procedure(s) Performed: BRIEF HISTORY: Patient is a 46-year-old, pleasant, white male scheduled for an upper endoscopy as part of evaluation of chronic intermittent gastric pain for the last several months duration. He was tried on Protonix 40 mg daily with no help.. PROCEDURE PERFORMED: Esophagogastroduodenoscopy with biopsy. PREOPERATIVE DIAGNOSIS: Chronic epigastric pain of 6 months. IV sedation per anesthesia. PROCEDURE: After informed consent was obtained, the patient was brought into the endoscopy unit. IV sedation was administered by Anesthesia under continuous monitoring. Initially the Olympus GIF-140 video endoscope was inserted into the mouth. Esophagus intubated without any difficulty. It was gradually advanced into the stomach and duodenum and carefully examined. The bulb and the second part of the duodenum appeared normal. Biopsies were done from the duodenum to rule out celiac disease The scope at this time was withdrawn to the stomach, adequately insufflated with air, and upon careful examination, mucosa of the antrum, had several scattered erosions consistent with gastritis and biopsies were done from this area. The body, cardia and the fundus appeared normal. The scope was then withdrawn into the esophagus. The GE junction was located at 41 cm from the incisors. The esophagus appeared normal. Biopsies were done from the distal esophagus. There were no erosions or ulcerations seen and the patient tolerated the procedure well. IMPRESSION: 1. Scattered erosions and antral stomach consistent with erosive gastritis. 2. No evidence of esophagitis or peptic ulcer. RECOMMENDATIONS: The findings of this examination were discussed with the patient as well as his family. He was advised to follow with the biopsy results. Continue with [id number] H2 blockers as needed..
[2021-07-30 11:28] VITALS: BP 115/74; PULSE 88
== END 2021-07-30 11:40 | disposition home or self-care (01) ==
LOC: ORWHC2ENDO 09:21
PROVIDERS: ATTEND Internal Medicine Gastroenterology
DX: K29.50 Unspecified chronic gastritis without bleeding (principal); K20.90 Esophagitis, unspecified without bleeding; G89.29 Other chronic pain
CPT/HCPCS: 43239; 88305; J2704; J2001

== ENCOUNTER 2023-10-22 14:43 | Emergency (ER) | payer OTHER ==
--- NOTE | 2023-10-22 14:56 | ED ---
Chest Pain HPI - General Source: patient, RN notes reviewed Mode of arrival: ambulatory Limitations: no limitations <Tomas Key - Last Filed: 10/22/23 14:55> <aTmara Rhodes - Last Filed: 10/23/23 14:01> - General Chief Complaint: Chest Pain Stated Complaint: Chest Pain Time Seen by Provider: 10/22/23 14:51 - History of Present Illness Initial Comments: Quick note - 48-year-old male presents emergency department chief complaint of chest pain. Patient states that he had some episode yesterday which alleviated with antiacids and water. He states that he has right lower quadrant pain and centralized severe chest pain. He has no prior cardiac disease. Patient states he had a prior cardiac cath which was negative for vessel disease. Patient states pain in right lower quadrant prior cholecystectomy (Tomas Key) 48-year-old male who presents emergency department reporting chest pain and right lower quadrant abdominal pain. He reports that his symptoms started yesterday. The abdominal pain has been intermittent. The chest pain has also been sporadic. He attempted to take an acids and water for the chest pain which she states did help improve his symptoms. He has no cardiac history. He did have a heart cath 3 years ago which demonstrated normal coronary arteries. He has had a cholecystectomy. No fevers. No changes in his bowel or bladder habits. (Tamara Rhodes) - Related Data Home Medications Medication Instructions Recorded Confirmed Garlic 1 each PO DAILY 08/22/20 07/29/21 [place]-3 Fatty Acids/Fish Oil [Fish 1 each PO DAILY 08/22/20 07/29/21 Oil 1,000 mg Softgel] Cholecalciferol (Vitamin D3) 125 mcg PO DAILY 01/02/21 07/29/21 [Vitamin D3 (125 MCG = 5,000 IU)] Previous Rx's Medication Instructions Recorded Aspirin 81 mg PO DAILY #30 chew 08/06/20 Pantoprazole Sodium [Protonix] 40 mg PO DAILY #30 tab 10/22/23 Allergies Allergy/AdvReac Type Severity Reaction Status Date / Time Penicillins Allergy Unknown Verified 07/30/21 09:59 Childhood Review of Systems ROS Other: All systems not noted in ROS Statement are negative. <Tomas Key - Last Filed: 10/22/23 14:55> ROS Other: All systems not noted in ROS Statement are negative. <Tamara Rhodes - Last Filed: 10/23/23 14:01> ROS Statement: Those systems with pertinent positive or pertinent negative responses have been documented in the HPI. Past Medical History Past Medical History: Deep Vein Thrombosis (DVT), GERD/Reflux Additional Past Medical History / Comment(s): heart palpitations, hx of blood clot right calf after ankle fx, states throat pain, chronic diarrhea for 10 years., covid History of Any Multi-Drug Resistant Organisms: None Reported Past Surgical History: Cholecystectomy, Heart Catheterization, Orthopedic Surgery Additional Past Surgical History / Comment(s): 22 lipomas removed, left shoulder surgery, surgeries on right ankle fx repair and removal of hardware. COLONOSCOPY 07/01/21 Past Anesthesia/Blood Transfusion Reactions: No Reported Reaction Past Psychological History: No Psychological Hx Reported Smoking Status: Never smoker - Past Family History Mother Family Medical History: Cancer Additional Family Medical History / Comment(s): lung and brain cancer Father Family Medical History: Cancer Additional Family Medical History / Comment(s): throat cancer <Tomas Key - Last Filed: 10/22/23 14:55> General Exam Limitations: no limitations <Tomas Key Manny - Last Filed: 10/22/23 14:55> General appearance: alert, in no apparent distress Head exam: Present: atraumatic, normocephalic, normal inspection Eye exam: Present: normal appearance, PERRL, EOMI. Absent: scleral icterus, conjunctival injection, periorbital swelling ENT exam: Present: normal exam, mucous membranes moist Neck exam: Present: normal inspection. Absent: tenderness, meningismus, lymphadenopathy Respiratory exam: Present: normal lung sounds bilaterally. Absent: respiratory distress, wheezes, rales, rhonchi, stridor Cardiovascular Exam: Present: regular rate, normal rhythm, normal heart sounds. Absent: systolic murmur, diastolic murmur, rubs, gallop, clicks GI/Abdominal exam: Present: soft, normal bowel sounds. Absent: distended, tenderness, guarding, rebound, rigid Extremities exam: Present: normal inspection, full ROM, normal capillary refill. Absent: tenderness, pedal edema, joint swelling, calf tenderness Back exam: Present: normal inspection Neurological exam: Present: alert, oriented X3, CN II-XII intact Psychiatric exam: Present: normal affect, normal mood Skin exam: Present: warm, dry, intact, normal color. Absent: rash <Tamara Rhodes - Last Filed: 10/23/23 14:01> - General Exam Comments Initial Comments: Visual Physical Exam Vital signs reviewed General: Well-appearing, nontoxic, no acute distress. Head: Normocephalic, atraumatic Eyes: PERRLA, EOMI ENT: Airway patent Chest: Nonlabored breathing Skin: No visual rash, normal skin tone Neuro: Alert and oriented 3 Musculoskeletal: No gross abnormalities (Tomas Key) Course Vital Signs 10/22/23 10/22/23 14:45 17:37 Temperature 98 F 98.1 F Pulse Rate 87 70 Respiratory 16 18 Rate Blood Pressure 159/102 135/88 O2 Sat by Pulse 100 99 Oximetry Chest Pain MDM <Tomas Kye - Last Filed: 10/22/23 14:55> <Tamara Rhodes - Last Filed: 10/23/23 14:01> - MDM I completed the quick note portion of this chart signed Tomas Key PA-C (Tomas Key) Was pt. sent in by a medical professional or institution ([facility], [facility], urgent ca re, hospital, or fdc...) When possible be specific @ -No Did you speak to anyone other than the patient for history (EMS, parent, family, police, friend...)? What history was obtained from this source @ -No Did you review nursing and triage notes (agree or disagree)? Why? @ -I reviewed and agree with nursing and triage notes Were old charts reviewed (outside hosp., previous admission, EMS record, old EKG, old radiological studies, urgent care reports/EKG's, fdc records)? Report findings @ -No old charts were reviewed Differential Diagnosis (chest pain, altered mental status, abdominal pain women, abdominal pain men, vaginal bleeding, weakness, fever, dyspnea, syncope, headache, dizziness, GI bleed, back pain, seizure, CVA, palpatations, mental health, musculoskeletal)? @ -Differential Chest Pain: Stable Angina, Unstable Angina, STEMI, NSTEMI Aortic Dissection, Pneumothorax, Musculoskeletal, Esophageal Spasm GERD, Cholecystitis, Pancreatitis, Zoster, this is not meant to be an all-inclusive list. Differential Abdominal Pain Men: Appendicitis, cholecystitis, diverticulosis, ischemic bowel, pancreatitis, hepatitis, UTI, gastroenteritis, AAA, incarcerated hernia, bowel obstruction, constipation, inflammatory bowel, hepatitis, peptic ulcer disease, splenic infarction, perforated viscus, testicular torsion, this is not meant to be an all-inclusive list EKG interpreted by me (3pts min.). @ -Yes and demonstrates sinus rhythm. He does have some J-point elevation V2V3 which is consistent with previous EKG from 2020 X-rays interpreted by me (1pt min.). @ -Not done CT interpreted by me (1pt min.). @ -None done U/S interpreted by me (1pt. min.). @ -None done What testing was considered but not performed or refused? (CT, X-rays, U/S, labs)? Why? @ -CT of the abdomen and pelvis as well as an echo however patient does not want to stay for any further testing What meds were considered but not given or refused? Why? @ -None Did you discuss the management of the patient with other professionals (professionals i.e. , PA, [facility], lab, RT, psych nurse, social studies teacher, gasoline pump mechanic, teacher, national service officer, case finisher)? Give summary @ -No Was smoking cessation discussed for >3mins.? @ -No Was critical care preformed (if so, how long)? @ -No Were there social determinants of health that impacted care today? How? (Homelessness, low income, unemployed, alcoholism, drug addiction, transportation, low edu. Level, literacy, decrease access to med. care, [facility], rehab)? @ -No Was there de-escalation of care discussed even if they declined (Discuss DNR or withdrawal of care, Hospice)? DNR status @ -No What co-morbidities impacted this encounter? (DM, HTN, Smoking, COPD, CAD, Cancer, CVA, ARF, Chemo, Hep., AIDS, mental health diagnosis, sleep apnea, morbid obesity)? @ -None Was patient admitted / discharged? Hospital course, mention meds given and route, prescriptions, significant lab abnormalities, going to OR and other pertinent info. @ -Upon arrival patient seen and evaluated in [facility]. Laboratory testing and chest x-ray had been ordered from the waiting room. I evaluated the patient myself. I do feel that the patient requires further testing to include an echo and a CT of his abdomen pelvis because of his reported symptoms. Patient does not want to stay any longer for further workup. He states that he is "supposed to be somewhere in 25 minutes". He has no current symptoms at this time. Patient has made the decision that he wants to follow-up outpatient. He will obtain the study through his primary care doctor. Patient is aware of the risks of leaving without further workup which may include permanent disability and even . He is able to recite the risks back to me. Patient must follow-up with his primary care doctor for further evaluation of the symptoms. Return to the emergency department should his symptoms worsen. Patient was in agreement with this plan and was discharged in stable condition Undiagnosed new problem with uncertain prognosis? @ -Yes Drug Therapy requiring intensive monitoring for toxicity (Heparin, Nitro, Insulin, Cardizem)? @ -No Were any procedures done? @ -No Diagnosis/symptom? @ -Acute chest pain, acute right lower quadrant abdominal pain Acute, or Chronic, or Acute on Chronic? @ -Acute Uncomplicated (without systemic symptoms) or Complicated (systemic symptoms)? @ -Complicated Side effects of treatment? @ -No Exacerbation, Progression, or Severe Exacerbation? @ -No Poses a threat to life or bodily function? How? (Chest pain, [place], [place], pneumonia, PE, COPD, DKA, ARF, appy, cholecystitis, CVA, Diverticulitis, Homicidal, Suicidal, threat to staff... and all critical care pts) @ -Yes as patient does not stay for completion of his workup (Tamara Rhodes) Disposition <Tomas Key - Last Filed: 10/22/23 14:55> Is patient prescribed a controlled substance at d/c from ED?: No Time of Disposition: 17:31 <Tamara Rhodes - Last Filed: 10/23/23 14:01> Clinical Impression: Chest pain, RLQ abdominal pain Disposition: HOME SELF-CARE Condition: Stable Instructions (If sedation given, give patient instructions): Chest Pain (ED), Abdominal Pain (ED) Additional Instructions: I did recommend CT of your abdomen to evaluate for kidney stones and appendicitis. You are leaving without having the studies performed. I do re commend that you follow-up with your primary care doctor for stress test as well as CT with and without contrast for rule out appendicitis/kidney stones. If your symptoms return, please return to the emergency department for the testing. Prescriptions: Pantoprazole Sodium [Protonix] 40 mg PO DAILY #30 tab Referrals: Leonor Clark MD [Primary Care Provider] - 1-2 days
[2023-10-22 15:23] LABS: Appearance,Urine Clear (Clear); Basophils % (A) 1 %; Bilirubin,Urine Negative (Negative); Blood,Urine Negative (Negative); Color,Urine Colorless; Eosinophils # (A) 0.2 k/uL (0-0.7); Eosinophils % (A) 4 %; Glucose,Urine (UA) Negative (Negative); Ketones,Urine Negative (Negative); Leukocyte Esterase,Urine Negative (Negative); Lymphocytes # (A) 2.4 k/uL (1.0-4.8); Lymphocytes % (A) 37 %; MCH 30.5 pg (25.0-35.0); MCV 89.8 fL (80.0-100.0); Monocytes # (A) 0.3 k/uL (0-1.0); Monocytes % (A) 5 %; Neutrophils # (A) 3.4 k/uL (1.3-7.7); Neutrophils % (A) 53 %; Nitrite,Urine Negative (Negative); Platelet Count 225 k/uL (150-450); Protein,Urine Negative (Negative); RBC 5.57 m/uL (4.30-5.90); RDW 12.2 % (11.5-15.5); Specific Gravity,Urine 1.001 (1.001-1.035); Urobilinogen,Urine <2.0 mg/dL (<2.0); WBC 6.4 k/uL (3.8-10.6)
[2023-10-22 15:45] LABS: ALT 39 U/L (4-49); AST 38 U/L (17-59); African American GFR (CKD) >90 (>60 ml/min/1.73 sqM); Albumin 4.6 g/dL (3.5-5.0); Alkaline Phosphatase 64 U/L (38-126); Anion Gap 9 mmol/L; Blood Urea Nitrogen 13 mg/dL (9-20); Calcium 9.5 mg/dL (8.4-10.2); Carbon Dioxide 25 mmol/L (22-30); Chloride 103 mmol/L (98-107); Glucose 94 mg/dL (74-99); Lipase 413 U/L (23-300); Magnesium 1.7 mg/dL (1.6-2.3); Non-African American GFR(CKD) >90 (>60 ml/min/1.73 sqM); Potassium 4.2 mmol/L (3.5-5.1); Sodium 137 mmol/L (137-145); Total Bilirubin 1.1 mg/dL (0.2-1.3); Total Protein 7.3 g/dL (6.3-8.2)
--- NOTE | 2023-10-22 16:00 | XR ---
EXAMINATION TYPE: XR chest 2V DATE OF EXAM: 10/22/2023 COMPARISON: 09/05/2020 HISTORY: 48-year-old male with chest pain TECHNIQUE: PA and lateral views FINDINGS: The cardiomediastinal silhouette, aorta, and pulmonary vasculature are within normal limits. Lungs an d pleural spaces are clear. IMPRESSION: No acute cardiopulmonary process.
[2023-10-22 16:03] LABS: Partial Thromboplastin Time 24.8 sec (22.0-30.0)
[2023-10-22 17:38] VITALS: BP 135/88; PULSE 70; RESP 18; TEMP 98.1
== END 2023-10-22 17:37 | disposition home or self-care (01) ==
LOC: EC 14:43
DX: R07.89 Other chest pain (principal); R10.31 Right lower quadrant pain; Z88.0 Allergy status to penicillin
CPT/HCPCS: 36415; 71046; 80053; 81003; 83690; 83735; 84484; 85025; 85379; 85610; 85730; 93005; 99285